=== PATIENT | male | born 1995 | race Caucasian/White ===

== ENCOUNTER 2024-10-17 19:03 | Outpatient (CLI) | payer MEDICAID, SELFPAY | END 2024-10-17 19:04 | disposition home or self-care (01) | PROVIDERS: Visit Provider Emergency Medicine Emergency Medical Services | DX: T50.991A Poisoning by other drugs, medicaments and biological substances, accidental (unintentional), initial encounter (principal); R11.0 Nausea | CPT/HCPCS: A0425; A0427 ==

== ENCOUNTER 2024-10-17 19:29 | Emergency (ER) | payer MEDICAID, SELFPAY ==
[2024-10-17] VITALS (39 sets, daily range): BP systolic 114–137; BP diastolic 33–110; PULSE 61–90; RESP 10–19; TEMP 36.5; O2SAT 90–100; BMI 20.5
[2024-10-17] MEDS: 0.9 % SODIUM CHLORIDE 1000 ml 1,000 ML IV (19:45)
--- NOTE | 2024-10-17 20:04 | CRLHL7_ITS ---
For Patients: As a result of the Cures Act, medical imaging exams and procedure reports are released immediately into your electronic medical record. You may view this report before your referring provider. If you have questions, please contact your health care provider. INDICATION: Ingested foreign body. Patient with given history of ingested bag of fentanyl. TECHNIQUE: Abdominal radiographs, 2 views. COMPARISON: None. FINDINGS: Lower chest: Unremarkable. Bowel: No bowel obstruction. Unremarkable bowel gas pattern. Moderate colonic stool burden, correlate for constipation. Soft tissues: Unremarkable. Bones: No acute osseous abnormalities. IMPRESSION: No radiopaque foreign bodies identified on this examination. No reported foreign body may not be radiodense enough to be visualized on radiograph. Consider CT for further evaluation. Dictated by Ketan Asif MD @ 10/17/2024 8:44:18 PM (Electronically Signed)
--- NOTE | 2024-10-17 20:05 | ED_ITS ---
HPI - Overdose General Chief Complaint: Overdose Stated Complaint: OD Time Seen by Provider: 10/17/24 19:36 History of Present Illness HPI Narrative: This 29-year-old male comes in by ambulance with police present also. He is not under arrest. He admits to taking 2 blue colored pills which he feels were street doses of oxycodone. He also swallowed a plastic bag that had purple- colored powder in it which he states was fentanyl. He arrives here with normal vital signs. He ingested this about an hour prior to arrival here. Related Data Home Medications ?Medication ?Instructions ?Recorded ?Confirmed dextroamphetamine-amphetamine 30 30 mg PO BID 10/17/24 10/17/24 mg tablet (Adderall) Allergies Allergy/AdvReac Type Severity Reaction Status Date / Time trazodone Allergy Intermediate Verified 10/17/24 19:40 Review of Systems Status of ROS: Reports: 10 or more systems reviewed and unremarkable except as noted in History and below Narrative: Constitutional: No fevers, no weight gain or loss. Eyes: No discharge. No vision changes. HENT: No congestion, no sore throat, no ear pain. Cardiovascular: No chest pain, no palpitations. Respiratory: No shortness of breath, no wheezes, no cough. Gastrointestinal: No abdominal pain, no vomiting, no diarrhea. Genitourinary: No dysuria, no hematuria. Musculoskeletal: Normal range of motion. Skin: No rashes, no pruritis. Neurological: No dizziness, weakness, sensory change, speech change. Endo/Heme/Allergies: No bruising or bleeding. No polydipsia. Pysch: no suicidality, no anxiety, no insomnia. All other systems reviewed and are negative. [facility] Social History Smoking Status: Current some day smoker What tobacco products do you use: cigarettes Do you use any of these nicotine containing products: Vaping Products How often do you have a drink containing alcohol: never AUDIT-C Alcohol total score: 0 Non-prescribed substance use: marijuana (any form), crack/cocaine, amphetamines/methamphetamines, opiods/painkillers and club/industrial retrofit designer drugs Exam Narrative: Exam Narrative: Constitutional: Well-developed, well-nourished, no acute distress. HEENT: Normocephalic, atraumatic. Neck: Normal range of motion. Nontender. Supple. Heart: Regular. No murmurs. Normal rate. Intact distal pulses. Lungs: Clear to auscultation. No chest discomfort. No wheezes, rhonchi, or rales. Abdomen: Normal bowel sounds. Nontender. No rebound tenderness. Genitalia: Deferred. Back: No midline tenderness. Normal range of motion. Extremities: Normal range of motion. No injury. Skin: Intact. No rash. Warm. No erythema or pallor. Neurologic: No altered sensation. No weakness. Alert and oriented. Nursing notes and vitals signs are reviewed. Const: Vital Signs, click to edit/add: Vital Signs - 24 hr 10/17/24 19:34 10/17/24 19:47 10/17/24 20:00 Temperature 97.7 F Pulse Rate 81 Pulse Rate [Left P ulse Oximeter] 90 Respiratory Rate 16 15 Blood Pressure Blood Pressure [Le ft Upper Arm] 133/33 L Pulse Oximetry 99 99 Oxygen Delivery Me thod Room Air 10/17/24 20:04 10/17/24 20:15 10/17/24 20:19 Temperature Pulse Rate 82 74 69 Pulse Rate [Left P ulse Oximeter] Respiratory Rate 11 L 16 Blood Pressure 132/92 H 131/80 Blood Pressure [Le ft Upper Arm] Pulse Oximetry 99 90 99 Oxygen Delivery Me thod 10/17/24 20:30 10/17/24 20:32 10/17/24 20:45 Temperature Pulse Rate 76 65 87 Pulse Rate [Left P ulse Oximeter] Respiratory Rate 19 16 Blood Pressure 137/94 H Blood Pressure [Le ft Upper Arm] Pulse Oximetry 98 92 96 Oxygen Delivery Me thod 10/17/24 20:47 10/17/24 20:48 10/17/24 21:00 Temperature Pulse Rate 65 77 90 Pulse Rate [Left P ulse Oximeter] Respiratory Rate 18 Blood Pressure 114/93 H Blood Pressure [Le ft Upper Arm] Pulse Oximetry 98 90 Oxygen Delivery Me thod 10/17/24 21:01 10/17/24 21:02 10/17/24 21:15 Temperature Pulse Rate 76 87 87 Pulse Rate [Left P ulse Oximeter] Respiratory Rate 12 13 Blood Pressure 130/95 H Blood Pressure [Le ft Upper Arm] Pulse Oximetry 100 97 100 Oxygen Delivery Me thod 10/17/24 21:17 10/17/24 21:18 10/17/24 21:30 Temperature Pulse Rate 70 81 85 Pulse Rate [Left P ulse Oximeter] Respiratory Rate Blood Pressure 136/106 H Blood Pressure [Le ft Upper Arm] Pulse Oximetry 97 100 100 Oxygen Delivery Me thod 10/17/24 21:32 10/17/24 21:33 10/17/24 21:50 Temperature Pulse Rate 73 79 65 Pulse Rate [Left P ulse Oximeter] Respiratory Rate 12 16 Blood Pressure 131/110 H Blood Pressure [Le ft Upper Arm] Pulse Oximetry 100 97 100 Oxygen Delivery Me thod 10/17/24 22:01 10/17/24 22:15 10/17/24 22:17 Temperature Pulse Rate 63 81 82 Pulse Rate [Left P ulse Oximeter] Respiratory Rate 11 L Blood Pressure 136/91 H 129/96 H Blood Pressure [Le ft Upper Arm] Pulse Oximetry 100 99 100 Oxygen Delivery Me thod Course Vital Signs Vital signs: Initial Vital Signs Temperature 97.7 F 10/17/24 19:34 Temperature Source Temporal Artery Scan 10/17/24 19:34 Pulse Rate 90 10/17/24 19:34 Pulse Rhythm Regular 10/17/24 19:34 Respiratory Rate 16 10/17/24 19:34 Blood Pressure 133/33 L 10/17/24 19:34 Blood Pressure Mean 66 L 10/17/24 19:34 Blood Pressure Position Supine 10/17/24 19:34 Pulse Oximetry 99 10/17/24 19:34 Oxygen Delivery Method Room Air 10/17/24 19:34 Vital Signs Temperature 97.7 F 10/17/24 19:34 Pulse Rate 90 10/17/24 19:34 Respiratory Rate 16 10/17/24 19:34 Blood Pressure 133/33 L 10/17/24 19:34 Pulse Oximetry 99 10/17/24 19:34 Oxygen Delivery Method Room Air 10/17/24 19:34 Temperature 97.7 F 10/17/24 19:34 Pulse Rate 82 10/17/24 22:17 Respiratory Rate 11 L 10/17/24 22:01 Blood Pressure 129/96 H 10/17/24 22:17 Pulse Oximetry 100 10/17/24 22:17 Oxygen Delivery Method Room Air 10/17/24 19:34 Medications Administered Medications: Generic Name Dose Route Start Last Admin Trade Name Freq PRN Reason Stop Dose Admin Sodium Chloride 1,000 mls @ 1,000 mls/hr 10/17/24 22:45 10/17/24 19:45 0.9 % Sodium Chloride 1000 Ml IV 10/17/24 23:44 1,000 mls/hr .Q1H ALBERT Administration MDM - Overdose MDM Narrative Medical decision making narrative: This patient is brought in by ambulance and police. The patient states that he swallowed a couple blue pills that he thought were street based oxycodone. He also states that he swallowed a bag of fentanyl. An IV was established and the patient did receive a L of normal saline. He apparently ingested these things about an hour prior to arrival. The patient does have a warrant for his arrest but is not under rest as the police that brought him in were from a different county where the warrant is listed. I did speak with an ER physician at [facility] who indicated that many times patient's will state that they swallowed a bag of drugs in order to avoid arrest. After a while the patient started to tell the nurse that he did not actually swallow anything. I had further conversation wi th him and he again states that he did not swallow any bag of fentanyl. I asked him if he did this to avoid arrest by the police and he said yes that was the reason. A did contact poison Control who recommends watching him for 6-8 hours. The patient did want to leave because he was hungry but I stated that we need to do our job here in the event that he did in fact swallow something that could be trouble for him. Imaging Data Abdominal x-ray: Radiologist's impression: No radiopaque foreign bodies identified on this examination. No reported foreign body may not be radiodense enough to be visualized on radiograph. Consider CT for further evaluation. ECG Data Attestation: I personally reviewed and interpreted this ECG as follows: Interpretation: Normal sinus rhythm. Rate is 88 beats per minute. There are no ST or T-wave abnormalities. Discharge Plan Discharge Clinical Impression: Drug overdose Patient Disposition: Home w/ Parent or Adult Condition: Stable Prescriptions: No Action dextroamphetamine-amphetamine [Adderall] 30 mg tablet 30 mg PO BID Rx Instructions: administer doses at least 4-6 hours apart Follow Up/Referrals: Provider,Not a Local [Primary Care Provider] - Stand Alone Forms: [employer] Info Instructions
--- NOTE | 2024-10-17 20:38 | ED.NURSE ---
Poison control contacted. Recommendation 6-8 hour watch. If Narcan given, clock starts over. Symptom management as needed.
--- OUTSIDE RECORDS SUMMARY | 2024-10-17 21:25 | XMS_ITS | Clinical Summary ---
Author Organization [facility] Address [address] [place] [address] Care Team Providers Care Design Technology Professor Name Role Phone Pcp, No Unavailable Unavailable None Primary Care Provider Unavailabl e Allergies Active Allergy Reactions Criticality Noted Date Comments Trazodone Other - Describe In Comment Field 08/31/2016 Nose clogged Medications No known medications Active Problems Problem Noted Date Diagnosed Date Altered mental status 03/03/2020 Purposeful non-suicidal drug ingestion 9 Overdose 10/11/2016 Overview (10/11/2016): Methamphetamine ingestion Methamphetamine abuse 10/11/2016 Mood disorder 05/02/2013 Cannabis dependence 04/27/2012 Overview (01/26/2019): Overview: Problem list name updated by automated process. Provider to review Smoker 12/20/2011 Overview (01/26/2019): Overview: 1 pack per day Drug abuse and dependence 12/20/2011 Overview (01/26/2019): Overview: Prescription pain pills, meth, marijuana, heroin. Drug abuse 04/06/2010 Immunizations Immunization Administration Dates Next Due DTP 12/10/1998,08/08/1996,01/16/1996 ,1995 DTaP 04/04/2003, 9,08/08/1996,03/04/1996 ,01/16/1996,1995 HIB PRP-T (ActHIB,Hiberix) 05/02/2003,04/04/2003 Hepatitis A (Adult) 03/03/2009 Hepatitis A (Peds) 03/03/2009 Hepatitis B (Peds) 10/20/2004, 5,02/26/2004,05/02/2003 ,04/14/2003 Hepatitis B, Unspecified 02/26/2004 Hib Conjugate, Unspecified 05/02/2003,04/04/2003 Inactivated Polio Vaccine 02/20/1999,03/1999,03/24/1996,01/16/1996 ,1995 Influenza Virus, Unspecified 04/28/2020 MMR 11/24/2001,05/30/1997 Meningococcal Vaccine (Menactra) 05/23/2008 Oral Polio Vaccine 03/24/1999 Polio Virus, Unspecified 03/24/1999,02/02,12/10/1998,03/24/1996 ,01/16/1996,1995 Tdap 05/23/2008 Tuberculin (PPD) 05/03/2012 Varicella Vaccine 03/03/2009,02/26/2004 Family History Medical History Relation Name Comments Alcoholism Father No Known Problems Sister Relation Name Status Comments Father Alive Mother Alive Sister Alive Social History Tobacco Use Types Packs/Day Years Used Date Smoking Tobacco: Every Day Cigarettes Smokeless Tobacco: Never Tobacco Cessation:Counseling Given: Yes Alcohol Use Standard Drinks/Week Comments Yes 0 (1 standard drink = 0.6 oz pur e alcohol) rare PHQ-2 Answer Date Recorded PHQ-2 TOTAL SCORE 1 07/31/2020 Social Connections Answer Date Recorded Frequency of Communication with Friends and Fami ly Not on file 07/02/2021 Financial Resource Strain Answer Date R ecorded Difficulty of Paying Living Expenses Not on file 07/02/2021 Difficulty of Paying Living Expenses Not on file 07/02/2021 Interpersonal Safety Answer Date Record ed Are you being hit, kicked, p ushed or yelled at (see row info)? No 02/07/2024 Interpersonal Safety Abuse 12 - 18 Not on file 02/07/2024 Interpersonal Safety Ambulatory Vulnerability No t on file 02/07/2024 Sex and Gender Information Value Date Recorded Sex Assigned at Not on file Legal Sex Male 7:21 AM COMMUNICATION CENTER COORDINATOR Gender Identity Not on file Sexual Orientation Not on file Obstetrics History Last Filed Vital Signs Vital Sign Reading Time Taken Comments Blood Pressure 137/104 02/07/2024 12:07 PM CDT Pulse 98 02/07/2024 12:07 PM CDT Temperature 36.5 C (97.7 F) 02/07/2024 12:07 PM CDT Respiratory Rate 16 02/07/2024 12:07 PM CDT Oxygen Saturation 97% 02/07/2024 12:07 PM CDT Inhaled Oxygen Concentration - - Weight 72.6 kg (160 lb) 02/07/2024 12:05 PM CDT Height 188 cm (6' 2) 02/07/2024 12:05 PM CDT Body Mass Index 20.54 02/07/2024 12:05 PM CDT Plan of Treatment Health Maintenance Due Date Last Done Comments Tetanus booster 05/23/2018 05/23/2008 BMI (ht and wt on same day) for age 18+ 07/31/2021 07/31/2020, 04/05/2016 Depression screening for age 12+ 07/31/2021 07/31/2020 COVID-19 vaccine series ( season) 2024 11/26/2020 Influenza Vaccine (Season Ended) 2025 04/28/2020 Tdap Completed 05/23/2008 HIV for age 15-65 Completed 10/27/2018 Hepatitis C screening for age 18-79 Completed 07/31/2020, 07/31/2020, 10/27/2018, Additional history exists Pneumococcal series for age 6-49 Aged Out No longer eligible based on patient's age to complete this topic Procedures Procedure Name Priority Date/Time Associated Diagnosis Comments ANTI HCV Routine 07/31/2020 9:30 AM COMMUNICATION CENTER COORDINATOR Chronic hepatitis C with hepatic coma (HC) ANTI HIV 1/2 Early AM 10/27/2018 6:54 AM CDT from Last 3 Months or Most Recently Relevant to Health Maintenance Results * (ABNORMAL) ANTI HCV (07/31/2020 9:30 AM COMMUNICATION CENTER COORDINATOR) HEPATITIS C ANTIBODY Reactive, Preliminary Positive(A) Non-React hakan 08/01/2020 7:10 AM COMMUNICATION CENTER COORDINATOR [facility] Comment:Presumptive evidence of antibodies to HCV. Reflexed to HCV RNA Quant (See separate report). Blood BLOOD SPECIMEN / Unknown Butterfly / Unknown 07/31/2020 9:30 AM COMMUNICATION CENTER COORDINATOR 07/31/2020 9:30 AM COMMUNICATION CENTER COORDINATOR us Nolan Betancur SEND OUTS Final Result [facility] [address] [place] [address], * ANTI HIV 1/2 (10/27/2018 6:54 AM CDT) HIV-1/HIV-2 ANTIBODY Non-Reacti ve Non-Reacti ve 10/27/2018 12:30 PM CDT [facility] Comment:HIV-1 p24 and HIV-1/ HIV-2 Ab not detected. Blood BLOOD SPECIMEN / Unknown Butterfly / Unknown 10/27/2018 6:54 AM CDT 10/27/2018 6:57 AM CDT Aftab Nieves MD SEND OUTS Final Res ult Performing Organization Address City/[facility]/ZIP Co de Phone Number [facility] [address] [place] [address], from Last 3 Months or Most Recently Relevant to Health Maintenance Advance Directives * Full Code (Latest Code Status on File) Date Activated Date Inactivated Comments 03/03/2020 3:35 AM 03/04/2020 11:19 AM Question Answer Comments Code Status Discussion: Not Discussed * Full Code Date Activated Date Inactivated Comments 01/27/2019 12:11 AM 01/27/2019 5:18 PM * Full Code Date Activated Date Inactivated Comments 10/27/2018 2:31 AM 10/28/2018 12:48 PM Question Answer Comments Code Status Discussion: Not Discussed * Full Code Date Activated Date Inactivated Comments 10/11/2016 7:30 AM 10/12/2016 1:46 PM Care Teams Design Technology Professor Relationship Specialty Start Date End Date None . PCP - General 09/20/23 Pcp, No . 06/23/22
--- OUTSIDE RECORDS SUMMARY | 2024-10-17 21:25 | XMS_ITS | Clinical Summary ---
Author Organization [facility] Address [address] [place] [id number] Care Team Providers Care Director Of Consulting Services Name Role Phone Britany Holm M.D. Primary Care Provider Source Comments Patient records contain information from all sites at [facility]. For routine questions regarding patient records, call [phone] during business hours, M-F 8:00 AM - 5:00 PM Central Time. Record requests for emergency care only can be directed to [phone] at any time.[facility] Allergies No known active allergies Medications Suboxone 8-2 mg per SL film PLACE 1 STRIP UNDER THE TONGUE TWICE DAILY DIRECTED FOR 15 DAYS 3 Active mirtazapine (REMERON) 15 mg tablet Take 15 mg by mouth at bedtime. Active naloxone (NARCAN) 4 mg/actuation nasal spray Administer 4 mg into nostril(s). 1 Active NIFEdipine XL (PROCARDIA XL) 30 mg 24 hr tabletIndicatio ns:Hypertension Essential Primary Take 1 tablet (30 mg total) by mouth at bedtime. 90 tablet 3 Active blood pressure monitor (Blood Pressure Kit) kitIndications: Hypertension Essential Primary 1 kit daily. 1 kit 3 Active Active Problems Problem Noted Date Diagnosed Date Attention Deficit Hyperactive Disorder 3 Malingering 11/24/2019 11/08/2022 Overview (11/08/2022): Repeated presentations to ED after telling police he swallowed bags of meth or heroin to avoid arrest, then leaves AMA. Hepatitis C Chronic 11/24/2019 11/08/2022 Cannabis Mild Use Disorder (Abuse) Uncomplicated 11/24/2019 11/08/2022 Opioid Mild Use Disorder (Abuse) Uncomplicated 0 11/24/2019 11/08/2022 Other Psychoactive Substance Use Unspecified Unc omplicated 11/24/2019 11/08/2022 Other Stimulant Abuse Uncomplicated 10/11/2016 11/08/2022 Other Psychoactive Substance Moderate Or Severe Use Disorder (Dependence) Uncomplicated 08/12/2016 11/08/2022 Pain Shoulder Right 09/19/2015 11/08/2022 Mood Disorder 05/02/2013 11/08/2022 Other Psychoactive Substance Mild Use Disorder (Abuse) Uncomplicated 05/02/2013 11/08/2022 Cannabis Moderate Or Severe Use Disorder (Dependence) Uncomplicated 04/27/2012 11/08/2022 Overview (11/08/2022): Problem list name updated by automated process. Provider to review Overview: Problem list name updated by automated process. Provider to review Immunizations Immunization Administration Dates Next Due DTP 12/10/1998, 7,01/16/1996,1995 DTaP (Infanrix, Tripedia) 04/04/2003,03/1999,08/08/1996,1995,01/16/1996,1995 HepA Adult 04/28/2020,03/03/2009 HepA Pediatric/Adolescent 03/03/2009 HepB Pediatric/Adolescent 10/20/2004,,02/26/2004,2002,04/14/2003 HepB, Unspecified 02/26/2004 Hib, Unspecified 05/02/2003,04/04/2003 IPV 02/20/1999, 9,03/24/1996,1995,1995 Influenza, Unspecified 04/28/2020 MCV4 (Menactra)(Discontinued) 05/23/2008 MMR 11/24/2001,05/30/1997 OPV 03/24/1999 PPSV23 04/28/2020 Polio, Unspecified 03/24/1999, 9,12/10/1998,1995,01/16/1996,1995 SARS-COV-2 (COVID-19) - MODE RNA BIVALENT(Discontinued) 05/12/2022 SARS-COV-2 (COVID-19) - MODERNA(Discontinued) 07/16/2021,12/31/2020 SARS-COV-2 (COVID-19) - PFIZ ER (Discontinued)(12 years or older) 11/26/2020 Tdap 05/23/2008 Tuberculin Skin Test, Unspecified 05/03/2012 PARISH 03/03/2009,02/26/2004 Family History Medical History Relation Name Comments Alcoholic Maternal Grandfather Cancer Paternal Grandfather Cancer Paternal Grandmother Relation Name Status Comments Maternal Grandfather Paternal Grandfather Paternal Grandmother Social History Tobacco Use Types Packs/Day Years Used Date Smoking Tobacco: Every Day Cigarettes 1 12.9 Started: 12/2011 Passive Smoke Exposure: Current Smokeless Tobacco: Never Nutrition Answer Date Recorded Nutrition: EVOO Fat Source Unknown 08/30 Nutrition: Servings of Fruits/Vegetables per Day Not on file 2020 Dental Answer Date Recorded Dental: Regular Dentist Unknown 08/30/19 21 Sex and Gender Information Value Date Recorded Sex Assigned at Not on file 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 Gender Identity Not on file Sexual Orientation Not on file Last Filed Vital Signs Vital Sign Reading Time Taken Comments Blood Pressure 148/111 11/08/2022 10:47 AM CDT Pulse 94 11/08/2022 10:47 AM CDT Temperature 36.5 C (97.7 F) 11/08/2022 10:16 AM CDT Respiratory Rate - - Oxygen Saturation - - Inhaled Oxygen Concentration - - Weight 80.6 kg (177 lb 11.1 oz) 023 10:16 AM CDT Height 195.6 cm (6' 5.01) 11/08/2022 1 0:16 AM CDT Body Mass Index 21.07 11/08/2022 10:16 AM CDT Plan of Treatment Health Maintenance Due Date Last Done Comments HIV Screening 1995 Tobacco Cessation counseling 1995 DTaP,Tdap,and Td Vaccines (7 - Td or Tdap) 05/23/2018 05/23/2008, 04/04/2003, 12/10/1998, Additional history exists Pneumococcal vaccine (0-49 years) (2 of 2 - PCV) 04/28/2021 04/28/2020 COVID-19 Vaccine (5 - season) 2024 05/12/2022, 07/16/2021, 12/31/2020, Additional history exists Influenza Vaccine (#1) 2024 04/28/2020 Depression Screening (Annual PHQ-2) 07/04/2024 IPV Vaccines Completed 03/24/1999, 03/05, 02/20/1999, Additional history exists Hepatitis B Vaccines Completed 10/20/2004, 09/14/2004, 02/26/2004, Additional history exists Varicella Vaccines Completed 03/03/2009, 02/26/2004 Hepatitis A Vaccines Completed 04/28/2020, 03/03/2009, 03/03/2009 HPV Vaccines Aged Out No longer eligi ble based on patient's age to complete this topic Insurance [facility] Care Teams Director Of Consulting Services Relationship Specialty Start Date End Date Britany Holm M.D. [address] [place] [phone] PCP - General Family Medicine 10/19/22
--- OUTSIDE RECORDS SUMMARY | 2024-10-17 21:26 | XMS_ITS | Encounter Summary ---
Author Organization [facility] Address [address] [place] [address] Care Team Providers Care Lang Path Therapist Name Role Phone Needs Pcp, Assignment Primary Care Provider Encounter Details Date Type Department Care Team (Late st Contact Info) Description 04/13/2019 Lab Requisition [facility] [address] 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
--- OUTSIDE RECORDS SUMMARY | 2024-10-17 21:26 | XMS_ITS | Encounter Summary ---
Author Organization [employer] Address [address] [place] [address] Care Team Providers Care Truss Puller Helper Name Role Phone Needs Pcp, Assignment Primary Care Provider [phone] Encounter Details Date Type Department Care Team (Latest Contact Info) Description 03/12/2020 Lab Requisition [facility] [address] 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 Not on file Not on file documented as of this encounter Plan of Treatment Not on file documented as of this encounter Procedures Procedure Name Priority Date/Time Associated Diagnosis Comments HEPATITIS C RNA QUANTITATIVE BY TMA Routine 03/12/2020 1:40 PM CDT Encounter for screening for infections with a predominantly sexual mode of transmission HEPATITIS PANEL ACUTE WITH REFLEX TO CONFIRMATION Routine 03/12/2020 1:40 PM CDT Encounter for screening for infections with a predominantly sexual mode of transmission TREPONEMA SCREEN Routine 03/12/2020 1:40 PM CDT Encounter for screening for infections with a predominantly sexual mode of transmission HIV 1/2 AG/AB 4TH GEN Routine 03/12/2020 1:40 PM CDT Encounter for screening for infections with a predominantly sexual mode of transmission documented in this encounter Results * (ABNORMAL) Hepatitis C RNA Quant by TMA (03/12/2020 1:40 PM CDT) [facility] HCV RNA, QN, REAL-TIME PCR 537029(H ) NOT DETECTED IU/mL 03/17/2020 11:00 PM CDT [facility] Mona THOMAS HCV RNA, QN, REAL-TIME PCR 5.24(H) NOT DETECTED Log IU/mL 03/17/2020 11:00 PM CDT [facility] THOMAS Comment: This test was performed using Real-Time Polymerase Chain Reaction. Reportable Range: 15 IU/mL to 100,000,000 IU/mL (1.18 Log IU/mL to 8.00 Log IU/mL). The analytical performance characteristics of this assay have been determined by [employer]. The modifications have not been cleared or approved by the FDA. This assay has been validated pursuant to the CLIA regulations and is used for clinical purposes. For more information on this test, go to: http://education.[employer]/faq/ABE84e7 (This link is being provided for informational/ educational purposes only.) [place], [facility], [address] [place] [address], [phone], RAVEN WIN MD Blood Venipuncture / Unknown 03/12/2020 1:40 PM CDT 03/14/2020 7:53 AM CDT us Serafin Varela LAB_1 Final Result [facility] THOMAS [address] [place] [address] * Treponema Screen (03/12/2020 1:40 PM CDT) [facility] Treponema Screen Result 0.066 {s_co_ratio } 03/12/2020 5:25 PM CDT [facility] Treponema Screen Interpretation Non Reactive Non Reactive 03/12/2020 5:25 PM CDT [facility] Blood Non-blood Collection / Unknown 03/12/2020 1:40 PM CDT 03/12/2020 4:18 PM CDT Serafin Varela LAB_1 Final Result [facility] [address] [place] [address] * HIV 1/2 Ag/Ab 4th Generation (03/12/2020 1:40 PM CDT) [facility] HIV 1/2 Antigen/Antib raúl (4th generation) Negative (Non Reactive) Negative (Non Reactive) 03/12/2020 5:25 PM CDT [facility] Comment:HIV-1 p24 Antigen an d HIV-1/HIV-2 Antibody not detected Blood Non-blood Collection / Unknown 03/12/2020 1:40 PM CDT 03/12/2020 4:22 PM CDT Serafin Varela LAB_1 Final Result [facility] [address] [place] [address] * (ABNORMAL) Acute Hepatitis Panel (with Reflex) (03/12/2020 1:40 PM CDT) [facility] Hepatitis A Antibody, IgM Negative (Non Reactive) Negative (Non Reactive) 03/12/2020 7:47 PM CDT [facility] Comment:IgM anti-HAV not det ected. Does not exclude the possibility of exposure to or infection with HAV. Levels of IgM anti-HAV may be below the cut-off in early infection. Hepatitis Bc Antibody,IgM Negative (Non Reactive) Negative (Non-Reacti ve) 03/12/2020 7:47 PM CDT [facility] Comment:IgM anti-HBc not det ected. Does not exclude the possibility of exposure to or infection with HBV. Hepatitis B Surface Antigen Negative (Non Reactive) Negative (Non Reactive) 03/12/2020 7:47 PM CDT [facility] Hepatitis C Antibody Positive (Reactive)( A) Negative (Non Reactive) 03/12/2020 7:47 PM CDT [facility] Comment:Presumptive evidence of antibodies to HCV. Per the CDC's recommended guidelines, HCV Quantitative RNA testing has been ordered. Blood Non-blood Collection / Unknown 03/12/2020 1:40 PM CDT 03/12/2020 4:19 PM CDT Serafin Varela LAB_1 Final Result [facility] [address] [place] [address], [facility] documented in this encounter Visit Diagnoses Diagnosis Encounter for screening for infections with a predominantly sexual mode of transmission documented in this encounter Care Teams Truss Puller Helper Relationship Specialty Start Date End Date Needs [facility] [address] PCP - General 01/20/16 documented as of this encounter
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
--- OUTSIDE RECORDS SUMMARY | 2024-10-17 21:26 | XMS_ITS | Encounter Summary ---
Author Organization [facility] Address [address] [place] [address] Care Team Providers Care Trust Clerk Name Role Phone Needs Pcp, Assignment Primary Care Provider Encounter Details Date Type Department Care Team (Latest Contact Info) Description 03/12/2020 Lab Requisition [facility] [address] 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 on file Not on file documented as of this encounter Plan of Treatment Not on file documented as of this encounter Procedures Procedure Name Priority Date/Time Associated Diagnosis Comments URINE CULTURE Routine 03/12/2020 7:45 AM CDT Encounter for screening for infections with a predominantly sexual mode of transmission TRICHOMONAS VAGINALIS, MOLECULAR DETECTION, URINE/URETHRA Routine 03/12/2020 7:45 AM CDT Encounter for screening for infections with a predominantly sexual mode of transmission CHLAMYDIA/NEISSERIA GONORRHOEAE RNA, TMA, UROGENITAL Routine 03/12/2020 7:45 AM CDT Encounter for screening for infections with a predominantly sexual mode of transmission CHLAMYDIA & GC, URINE (14 YEARS AND OLDER) Routine 03/12/2020 7:45 AM CDT Encounter for screening for infections with a predominantly sexual mode of transmission documented in this encounter Results * Chlamydia/Neisseria gonorrhoeae RNA, TMA, Urogenital (03/12/2020 7:45 AM CDT) Chlamydia Trachomatis RNA, TMA, Urogenital NOT DETECTED NOT DETECTED 03/14/2020 3:00 PM CDT [email or web address] [facility] THOMAS Neisseria gonorrhoeae RNA, TMA, Urogenital NOT DETECTED NOT DETECTED 03/14/2020 3:00 PM CDT [facility] Mona THOMAS [facility] See Note SEE NOTE 03/14/2020 3:00 PM CDT [facility] Mon[facility] THOMAS Comment: The analytical performance characteristics of this assay, when used to test SurePath(TM) specimens have been determined by [employer]. The modifications have not been cleared or approved by the FDA. This assay has been validated pursuant to the CLIA regulations and is used for clinical purposes. For additional information, please refer to https://education.[employer]/faq/XZU770 (This link is being provided for information/ educational purposes only.) [place], [facility], [address] [place] [address], [phone], RAVEN WIN MD Urine STD Non-blood Collection / Unknown 03/12/2020 7:45 AM CDT 03/12/2020 4:14 PM CDT Serafin Varela MD LAB_1 Final Result [facility] Mon[facility] THOMAS [address] [place] [address] * Urine Culture (03/12/2020 7:45 AM CDT) Urine Culture Urogenital Dona 03/13/2020 6:50 PM CDT [facility] Urine URINE SPECIMEN COLLECTION, CLEAN CATCH / Unknown Non-blood Collection / Unknown 03/12/2020 7:45 AM CDT 03/12/2020 4:13 PM CDT Serafin Varela MD LAB_1 Final Result [address] [phone] * Trichomonas vaginalis by Qual TMA (03/12/2020 7:45 AM CDT) T. vaginalis by TMA Negative Negative 03/15/2020 1:49 AM CDT [facility] Comment: Test developed and characteristics determined by [facility]. See Compliance Statement B: [address] Interpretive Information: Trichomonas vaginalis by TMA A negative result does not completely rule out infection with T. vaginalis. Results should be interpreted in conjunction with other clinical data. This test has not been validated for use with self-collected vaginal swab specimens from patients. Performance of this test on vaginal swab specimens from women has not been evaluated. This test is intended for medical purposes only and is not valid for the evaluation of suspected sexual abuse or for other forensic purposes. Performed By: [facility] [address] [place] [address] Manager Relationship: Jo-Ann Sol MD [employer] Type Urine 020 1:49 AM CDT [facility] Specimen Source Urine 0 1:49 AM CDT [facility] Urine Non-blood Collection / Unknown 03/12/2020 7:45 AM CDT 03/12/2020 4:14 PM CDT Serafin Varela MD LAB_1 Final Result [facility] [address] [phone] [place] [phone] * Chlamydia & GC, Urine (14 Years and Older) (03/12/2020 7:45 AM CDT) Chlamydia Trachomatis and N. gonorrhoeae (Sendout) Due to current laboratory situations this test is temporarily being sent out. See the new test in chart review. 03/13/2020 2:39 PM CDT [facility] Urine STD Non-blood Collection / Unknown 03/12/2020 7:45 AM CDT 03/12/2020 4:14 PM CDT us Serafin Varela MD LAB_1 Final Result [facility] [address] [id number] [phone] documented in this encounter Visit Diagnoses Diagnosis Encounter for screening for infections with a predominantly sexual mode of transmission documented in this encounter Care Teams Trust Clerk Relationship Specialty Start Date End Date Needs Pcp, [place] [address] PCP - General 01/20/16 documented as of this encounter
--- OUTSIDE RECORDS SUMMARY | 2024-10-17 21:26 | XMS_ITS | Encounter Summary ---
Author Organization [facility] er Address [address] [place] [address] Care Team Providers Care Industrial Spraypainter Name Role Phone None, Pcp Primary Care Provider Unavailabl e Reason for Visit * Reason Onset Date Comments Critical Lab Results 03/20/2024 Encounter Details Date Type Department Care Team (Late st Contact Info) Description 03/20/2024 Telephone [facility] [address] [place] [address] Ethan Barreto MD [address] [place] [address] Critical Lab Results Social History Tobacco Use Types Packs/Day Years Used Date Smoking Tobacco: Every Day Cigarettes Smokeless Tobacco: Former PHQ-2 Answer Date Recorded PHQ-9 Total Score 7 03/19/2024 Sex and Gender Information Value Date Recorded Sex Assigned at Not on file 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
--- OUTSIDE RECORDS SUMMARY | 2024-10-17 21:26 | XMS_ITS | Encounter Summary ---
Author Organization [facility] Address [address] [place] [address] Care Team Providers Care Immunochemist Name Role Phone Needs Pcp, Assignment Primary Care Provider Encounter Details Date Type Department Care Team (Latest Contact Info) Description 03/07/2019 Lab Requisition [facility] [address] 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 vaginalis by TMA Negative Negative 03/10/2019 6:15 AM CDT [facility] Comment: Test developed and characteristics determined by [employer]. See Compliance Statement B: [employer]/CS Interpretive Information: Trichomonas vaginalis by TMA A [...] abuse or for other forensic purposes. Performed by [employer] [facility], [address] [place] [address] [email or web address], Prashant Monroy MD, Lab. Director [employer] Type Urine 019 6:15 AM CDT [facility] Specimen Source Urine 9 6:15 AM CDT [facility] Urine Non-blood Collection / Unknown 03/06/2019 8:30 PM CDT 03/07/2019 8:20 PM CDT Serafin Varela LAB_1 Final Result [facility] [address] [place], [place] [address] [place] [address] * Chlamydia & GC, Urine (14 Years and Older) (03/06/2019 8:30 PM CDT) Chlamydia Trachomatis STD Not Detected Not Detected 03/08/2019 3:30 PM CDT [facility] N. gonorrhoeae STD Not Detected Not Detected 03/08/2019 3:30 PM CDT [facility] Urine Non-blood Collection / Unknown 03/06/2019 8:30 PM CDT 03/07/2019 8:19 PM CDT Narrative [facility] - 03/08/2019 3:30 PM CDT Test performed by Molecular Detection Urine Volume submitted was greater than 30 ml. Excess collection volume may decrease test sensitivity. us Serafin Varela LAB_1 Final Result Performing Organization Address City/State/[facility] [[email or web address]] Co de Phone Number [facility] [address] [phone] documented in this encounter Visit Diagnoses Diagnosis Other psychoactive substance abuse, uncomplicated ([facility]) documented in this encounter Care Teams Immunochemist Relationship Specialty Start Date End Date Needs Pcp, [place] [address] PCP - General 01/20/16 documented as of this encounter
--- OUTSIDE RECORDS SUMMARY | 2024-10-17 21:26 | XMS_ITS | Encounter Summary ---
Author Organization [facility] er Address [address] [place] [address] Care Team Providers Care Test Borer Name Role Phone None, Pcp Primary Care Provider Unavailabl e Reason for Visit * Reason Onset Date Comments Med Refill 04/16/2024 Encounter Details Date Type Department Care Team (Late st Contact Info) Description 04/16/2024 Refill [facility] [address] [place] [address] Ethan Barreto MD [address] [place] [address] Attention deficit hyperactivity disorder (ADHD), combined type Social History Tobacco Use Types Packs/Day Years Used Date Smoking Tobacco: Every Day Cigarettes Smokeless Tobacco: Former PHQ-2 Answer Date Recorded PHQ-9 Total Score 10 04/17/2024 Sex and Gender Information Value Date Recorded Sex Assigned at Not on file 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 Patient was transferred to scheduling and has a follow up appt scheduled for tomorrow with Dr. Barreto. Patient was advised Dr. Barreto may want to wait until visit to renew since he no showed last visit. Patient verbalized understanding. Upcoming appointment with provider: 04/17/2024 Last visit in provider department: 03/23/2024 Last visit requested medication was discussed: 03/23/2024 Last Rx: amphetamine-dextroamphetamine (Adderall) 15 MG tablet #21 with 0 refills 03/19/2024 amphetamine-dextroamphetamine XR (ADDERALL XR) 30 MG 24 hr capsule #21 with 0 refills 03/19/2024 Requested Prescriptions Pending Prescriptions Disp Refills amphetamine-dextroamphetamine (Adderall) 15 MG tablet 21 tablet 0 Sig: Take 1 tablet (15 mg total) by mouth 1 (one) time each day for 21 days amphetamine-dextroamphetamine XR (ADDERALL XR) 30 MG 24 hr capsule 21 capsule 0 Sig: Take 1 capsule (30 mg total) by mouth 1 (one) time each day in the morning for 21 days Labs: Vitals: BP Readings from Last 2 Encounters: 03/23/24 (!) 147/101 03/20/24 128/86 Last Controlled Substance Agreement (CSA): 03/20/2024 Last Random Urine Drug Screen (RUDS): 03/20/2024 documented in this encounter Plan of Treatment Not on file documented as of this encounter Visit Diagnoses Diagnosis Attention deficit hyperactivity disorder (ADHD), combined type documented in this encounter Care Teams Test Borer Relationship Specialty Start Date End Date None, Pcp [address] [place] [phone] PCP - General Registered Associate 05/29/18 documented as of this encounter
--- OUTSIDE RECORDS SUMMARY | 2024-10-17 21:26 | XMS_ITS | Encounter Summary ---
Author Organization [employer] Address [address] [place] [address] Care Team Providers Care Reception Specialist Name Role Phone Needs Pcp, Assignment Primary Care Provider Encounter Details Date Type Department Care Team (Late st Contact Info) Description 03/27/2019 Lab Requisition [facility] [address] 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 Not on file Not on file Not on file documented as of this encounter Plan of Treatment Not on file documented as of this encounter Procedures Procedure Name Priority Date/Time Associated Diagnosis Comments CBC AND DIFFERENTIAL PANEL Routine 03/27/2019 6:52 AM CDT Splenomegaly, not elsewhere classified Hydronephrosis RENAL FUNCTION PANEL Routine 03/27/2019 6:52 AM CDT Splenomegaly, not elsewhere classified Hydronephrosis COMPLETE BLOOD COUNT-W/DIFF Routine 03/27/2019 6:52 AM CDT Splenomegaly, not elsewhere classified Hydronephrosis documented in this encounter Results * Complete Blood Count-W/Diff (03/27/2019 6:52 AM CDT) WBC 6.1 3.5 - 10.5 x10(9)/L 03/27/2019 12:39 PM CDT [facility] RBC 4.93 4.32 - 5.72 x10(12)/L 03/27/2019 12:39 PM CDT [facility] Hemoglobin 14.7 13.5 - 17.5 g/dL 03/27/2019 12:39 PM CDT [facility] HCT 44.6 38.8 - 50.0 % 03/27/2019 12:39 PM CDT [facility] MCV 90.5 80.0 - 100.0 fL 03/27/2019 12:39 PM CDT [facility] MCH 29.8 27.6 - 33.3 pg 03/27/2019 12:39 PM CDT [facility] MCHC 33.0 31.5 - 35.2 g/dL 03/27/2019 12:39 PM CDT [facility] RDW 14.5 11.9 - 15.5 % 03/27/2019 12:39 PM CDT [facility] Platelets 271 150 - 450 x10(9)/L 03/27/2019 12:39 PM CDT [facility] Automated NRBC 0 <=0 /100 WBC 03/27/2019 12:39 PM CDT [facility] Neutrophil Absolute 2.7 1.7 - 7.0 10(9)/L 03/27/2019 12:39 PM CDT [facility] Lymphocyte Absolute 2.4 1.0 - 4.8 10(9)/L 03/27/2019 12:39 PM CDT [facility] Monocyte Absolute 0.7 0.2 - 0.9 10(9)/L 03/27/2019 12:39 PM CDT [facility] Eosinophil Absolute 0.2 0.0 - 0.5 10(9)/L 03/27/2019 12:39 PM CDT [facility] Basophil Absolute 0.1 0.0 - 0.3 10(9)/L 03/27/2019 12:39 PM CDT [facility] Immature Granulocyte % 0.2 0.0 - 0.5 % 03/27/2019 12:39 PM CDT [facility] Blood Venipuncture / Unknown 03/27/2019 6:52 AM CDT 03/27/2019 12:22 PM CDT Serafin Varela LAB_1 Final Result [facility] [address] [place] [address], [facility] * Renal Function Panel (03/27/2019 6:52 AM CDT) Sodium 141 136 - 145 mmol/L 03/27/2019 2:52 PM CDT [facility] Potassium 4.3 3.5 - 5.1 mmol/L 03/27/2019 2:52 PM CDT [facility] Chloride 104 98 - 109 mmol/L 03/27/2019 2:52 PM CDT [facility] CO2 26 20 - 29 mmol/L 03/27/2019 2:52 PM CDT [facility] Anion Gap 11 7 - 16 mmol/L 03/27/2019 2:52 PM CDT [facility] Calcium 9.8 8.4 - 10.4 mg/dL 03/27/2019 2:52 PM CDT [facility] BUN 16 7 - 26 mg/dL 03/27/2019 2:52 PM CDT [facility] Creatinine 0.76 0.73 - 1.18 mg/dL 03/27/2019 2:52 PM CDT [facility] GFR, Estimated >60 >60 mL/min/1.7 3m2 03/27/2019 2:52 PM CDT [facility] GFR, Est If >60 >60 mL/min/1.7 3m2 03/27/2019 2:52 PM CDT [facility] Albumin 4.2 3.5 - 5.0 g/dL 03/27/2019 2:52 PM CDT [facility] Phosphorus 4.5 2.3 - 4.7 mg/dL 03/27/2019 2:52 PM CDT [facility] Glucose 88 70 - 100 mg/dL 03/27/2019 2:52 PM CDT [facility] Comment:The given reference range is for the fasting state. Non-fasting reference range for glucose is 70 - 180 mg/dL. Hours Fasting 0 03/27/2019 2:52 PM CDT [facility] Blood Venipuncture / Unknown 03/27/2019 6:52 AM CDT 03/27/2019 12:20 PM CDT us Serafin Pérez Nichole LAB_1 Final Result [facility] [address] documented in this encounter Visit Diagnoses Diagnosis Splenomegaly, not elsewhere classified Hydronephrosis documented in this encounter Care Teams Reception Specialist Relationship Specialty Start Date [place] [address] PCP - General 01/20/16 documented as of this encounter
--- OUTSIDE RECORDS SUMMARY | 2024-10-17 21:26 | XMS_ITS | Encounter Summary ---
Author Organization [facility] Address [address] [facility] [place] [address] Care Team Providers Care Supervisor Plastering Name Role Phone No Ref-Primary, Physician Primary Care Provider System, Provider Not In Primary Care Provider Un available No Ref-Primary, Physician Primary Care Provider System, Provider Not In Unavailable Unavaila ble No Ref-Primary, Physician Unavailable [phone] No Ref-Primary, Physician Unavailable [phone] Taisha Balderrama APRN MONOTYPE KEYBOARD OPERATOR Unavailable [phone] Reason for Visit * Reason Onset Date Comments MH/CD Inpatient 06/21/2019 Encounter Details Date Type Department Care Team ([facility] st Contact Info) Description 06/21/2019 Telephone [facility] Behavioral Health Intake [address] [place] [phone] Generic, Behavioral Intake, MH/CD Inpatient Social History Tobacco Use Types Packs/Day Years Used Date Smoking Tobacco: Every Day Cigarettes Smokeless Tobacco: Never Alcohol Use Standard Drinks/Week Comments Not Currently 0 (1 standard drink = 0.6 oz pur e alcohol) Sex and Gender Information Value Date Recorded Sex Assigned at Not on file Legal Sex Male 5:10 AM NUCLEAR PHYSICIAN Gender Identity Not on file Sexual Orientation Not on file documented as of this encounter Miscellaneous Notes * Telephone Encounter - Chan Casas - 06/21/2019 12:58 PM NUCLEAR PHYSICIAN S - 23/M presenting to [facility] ED requesting Detox from Opiates and Benzodiazepines B - Pt.reports using Heroin IV 2 to 3 grams daily EDWARDO today , uses 6 mg xanax daily , EDWARDO this morning reports hx of W/d seizure most recent 3 months ago, reports meth use as well a couple grams , denies SI HI , recently diagnosed w/ HEP C. U tox pos amphetamines, benzodiazepines, THC and opiates A - Vol R - admit to 3A / CD / Dr. Lucero EAR PHYSICIAN EAR PHYSICIAN documented in this encounter Plan of Treatment Not on file documented as of this encounter Visit Diagnoses Not on filedocumented in this encounter Additional Health Concerns Infection Onset Date Last Indicated Resolved Time Rule Out COVID-04/09/2023 04/09/2023 04/09/2023 5:03 AM CDT Assessment Noted Time PHQ-9 Depression Total Score: 5 08/13/19 17 7:09 AM NUCLEAR PHYSICIAN documented as of this encounter Care Teams Supervisor Plastering Relationship Specialty Start Date End Date No Ref-Primary, Physician PCP - General 04/25/19 01/13/23 System, Provider Not In PCP - General Clinic 01/14/23 08/10/24 No Ref-Primary, Physician PCP - General 08/11/24 System, Provider Not In Clinic 08/11/24 No Ref-Primary, Physician 01/14/23 No Ref-Primary, Physician 04/25/19 Taisha Balderrama APRN MONOTYPE KEYBOARD OPERATOR [facility] [address] [place] [address] Assigned Behavioral Health Provider 01/24/24 documented as of this encounter
--- OUTSIDE RECORDS SUMMARY | 2024-10-17 21:26 | XMS_ITS | Encounter Summary ---
Author Organization [facility] Address [address] [facility] [place] [address] Care Team Providers Care Electrical Accessories Ii Assembler Name Role Phone Pastora Peters MD Primary Care Provider [phone] Confirmed, No Pcp Primary Care Provider Unavaila ble No Ref-Primary, Physician Primary Care Provider No Ref-Primary, Physician Primary Care Provider System, Provider Not In Primary Care Provider Un available No Ref-Primary, Physician Primary Care Provider System, Provider Not In Unavailable Unavaila ble No Ref-Primary, Physician Unavailable [phone] No Ref-Primary, Physician Unavailable [phone] Taisha Balderrama APRN DUPLICATING MACHINE OPERATOR Unavailable [phone] Encounter Details Date Type Department Care Team (Late st Contact Info) Description 03/28/2013 Telephone [facility] Behavioral Health Intake [address] [place] [phone] Generic, Behavioral Intake, Social History Tobacco Use Types Packs/Day Years Used Date Smoking Tobacco: Every Day Cigarettes Smokeless Tobacco: Never Alcohol Use Standard Drinks/Week Comments Yes 0 (1 standard drink = 0.6 oz pur e alcohol) monthly Sex and Gender Information Value Date Recorded Sex Assigned at Not on file Legal Sex Male 5:[address] REGISTRY OFFICER Gender Identity Not on file Sexual Orientation Not on file documented as of this encounter Miscellaneous Notes * Telephone Encounter - AfricaNeelima littlejohne - 03/28/2013 2:48 PM CDT S-Pt is being referred to [facility] after he is stabilized on 6 [facility]. Pt still has IV per RN @3pm. B-Per Dr Chambers's note: pts parents are ambivalent about transfer to unit. We would need themto be on board for the transfer before we could move the pt to . Pt needs a primary [place] mentalhealth diagnosis to go to [facility] on 6A. Pt admits to taking LSD which made him anxious so he took someXanax. He states he uses either marijuana, K2, or LSD almost daily. A-Told RN we would talk in the m orning after parents consider if they want pt to return to [facility]A. Dr Carbajal is aware of the situationand emphasized the need for a primary MENTAL HEALTH diagnosis for the pt to meet criteria on 6a. R-[facility] to check on pts disposition. Mary Ellen Scott documented in this encounter Plan of Treatment Not on file documented as of this encounter Visit Diagnoses Not on filedocumented in this encounter Additional Health Concerns Infection Onset Date Last Indicated Resolved Time Rule Out COVID-19 04/09/2023 04/09/2023 04/09/2023 5:03 AM CDT documented as of this encounter Care Teams Electrical Accessories Ii Assembler Relationship Specialty Start Date End Date Pastora Peters MD PCP - General Family Practice 03/28/13 05/23/16 Confirmed, No Pcp PCP - General 05/24/16 03/03/17 No Ref-Primary, Physician PCP - General 10/13/18 04/24/19 No Ref-Primary, Physician PCP - General 04/25/19 01/13/23 System, Provider Not In PCP - General Clinic 01/14/23 08/10/24 No Ref-Primary, Physician PCP - General 08/11/24 System, Provider Not In Clinic 08/11/24 No Ref-Primary, Physician 01/14/23 No Ref-Primary, Physician 04/25/19 Taisha Balderrama APRN DUPLICATING MACHINE OPERATOR [facility] [address] [place] [id number] Assigned Behavioral Health Provider 01/24/24 documented as of this encounter
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
--- OUTSIDE RECORDS SUMMARY | 2024-10-17 21:26 | XMS_ITS | Encounter Summary ---
Author Organization [facility] er Address [address] [place] [address] Care Team Providers Care Bar And Filler Assembler Name Role Phone None, Pcp Primary Care Provider Unavailabl e Reason for Visit * Reason Onset Date Comments MAT Clinic Referral/Readmission 06/06/2024 Encounter Details Date Type Department Care Team (Late st Contact Info) Description 06/06/2024 Telephone SE MEDICATION ASSISTED TREATMENT [address] [place] [address] [id number] Aftab Reza PA-C [address] [place] [phone] MAT Clinic Referral/Readmission Social History Tobacco Use Types Packs/Day Years Used Date Smoking Tobacco: Every Day Cigarettes Smokeless Tobacco: Former PHQ-2 Answer Date Recorded PHQ-9 Total Score 5 10/04/2024 Sex and Gender Information Value Date Recorded Sex Assigned at Not on file 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 He noted that he stopped Zubsolv 5 days ago because he wanted to use and he relapsed on fentanylabout 3-4 days ago. 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 Patient does not haveany Zubsolv in his possession at this time but he does have clonidine, hydroxyzine, and zofran thathe can use as needed for withdrawal symptoms. Patient was added to the schedule for an 11 am readmission visit tomorrow, 10/16/24, with Dr. Garcia. * Telephone Encounter - Zakiya Lopez MD - 09/25/2024 12:27 PM CDT Noted. Did not show today. Zakiya Seals MD * Telephone Encounter - Martha Cevallos RN - 09/25/2024 7:56 AM CDT Patient contacted the MAT Clinic requesting to present early to his scheduled appointment today which is at 11:20am. Patient notes that he needs to be in [place] to catch his taxi at 1:30pm [facility]. This RN explained that he could present by 10:45am but it was not a guarantee that he would be seen sooner. This RN elaborated and stated that it was unlikely he would still be in the clinic past 12-12:30pm but it would be our priority to ensure he left in time. Patient verbalized great appreciation and the phone call was ended. Patient did note having a dose of Zubsolv this morning and reported having an additional tablet in his pants pocket to take as well. * Telephone Encounter - Kai Valenzuela BSN, RN - 09/24/2024 11:35 AM CDT Patient contacted the MAT Clinic requesting to reschedule a Transfer of Care appointment to continue Zubsolv prescribing and discuss transitioning to the Sublocade injection. Patient is currently prescribed Zubsolv from the [facility]. He believes he is out of medication at this time,although he has not double checked his prescription bottle. He states that he takes Zubsolv 11 mg tablet twice daily. He is living with his parents in [place], [place] and wants to switch to our clinic because it is closer than driving [facility]. Notably, the patient is pending an outpatient treatment intake today with [facility] [employer]. This was required by his regulatory compliance officer. Patient reports sobriety from opioids since March 2024, although previous documentation from 06/06/24 notes that he had fentanyl use in May. Patient reports occasional use of speed/meth via smoking, although he states that this is very rare. He notes that he uses meth when he runs out of Zubsolv and can't get to [facility] for a refill since it helps with withdrawal symptoms. Patient notes that he was given a Sublocade injection 6 months ago but he relapsed and did not continue this. He is interested in getting back on the injection. Patient was scheduled for an 11:20 am Transfer of Care appointment tomorrow, 09/26/23, with Dr. Matos. He was asked to arrive by 11 am for a urine drug screen. He was informed that if the provider agrees to proceed with a Sublocade injection order, prior authorization will be initiated with his [employer] insurance for approval of coverage. * Telephone Encounter - Kai Valenzuela BSN, RN - 06/06/2024 4:37 PM MACHINE SHOP REPAIR TECHNICIAN MAT Clinic received a referral from Dr. Barreto for the patient to transfer care to the MAT Clinic forZubsolv prescribing. Patient was previously seen for one consult visit with the MAT Clinic on 03/20/24, but he declined transferring care. Per 03/20/24 note, Shyam had decided to not establish care here with [facility] MAT clinic and instead continue his care through the [facility] recovery clinic. This seemed to be due frequency of visits as well as staying on 32 mg of Suboxone. Had recommended a maximum dose of 24 mg of Suboxone here. This RN contacted the patient and he noted that he has continued with MAT prescribing since seeing the MAT Clinic and he is on Zubsolv 11.4-2.9 mg tablet twice daily currently through the [facility]. Notably, the patient was at [facility] when he was last seen with the MAT Clinic and he continued his stay thereafter for a little while. Patient noted that he left [facility] for one month and returned to the [facility] where he was staying in a hotel. During this time, he reported a 3-day relapse starting on 05/17/24. Patient states that he was using fentanyl powder via smoking, and he used about $250 worth over 3 days. Last fentanyl use was 05/20/24. Patient noted that hedid not stop taking Zubsolv during this relapse. He stated that continuing the Zubsolv limited the euphoric effect of the drug which helped him not continue to use. Patient stated that following thisrelapse, he was visiting family for Thanksgiving. Patient returned to [place] and readmitted to [facility] yesterday, 06/05/24. Patient noted that his [employer] insurance lapsed in the beginning of June and it won't be active for about another 3 weeks. He informed this RN that he is interested in transferring care to the [facility] MAT Clinic but he is unsure if insurance issues would prevent him from obtaining a prescription, andhe has been nervous about running out of medication. Due to this, he started only taking one Zubsolv tablet per day (half of his usual dose) about 4 days ago to avoid running out of medication, but he is having some nausea, vomiting, and a stomach ache. Currently, he states that he has a week supply left if he took two per day. He stated that he is working with the [facility] Crisis unit for vt dication voucher/payment assistance so he can afford his medications. Per patient, they will pay for his prescriptions potentially if he uses [facility]. Patient was scheduled for a 1 pm readmission visit with Aftab Reza PA-C on 06/11/24. This RN recommended that the patient takes his Zubsolv dose as prescribed until his MAT appointment and it was requested that he bring in any remaining medication to this visit. Patient noted that [facility] manages his medications, so this RN mentioned that he will be asked to sign an KYLEE for [employer]. Patient agreed to this plan and noted thathe would be willing to comply with the MAT Clinic policies/guidelines including completing urine drug screens, coming to weekly appointments initially, and following the recommended visit progressionplan. INE SHOP REPAIR TECHNICIAN INE SHOP REPAIR TECHNICIAN documented in this encounter Plan of Treatment Not on file documented as of this encounter Visit Diagnoses Not on filedocumented in this encounter Care Teams Bar And Filler Assembler Relationship Specialty Start Date End Date None, Pcp [address] [facility] [place] [phone] PCP - General System Engineer 05/29/18 documented as of this encounter
--- OUTSIDE RECORDS SUMMARY | 2024-10-17 21:26 | XMS_ITS | Encounter Summary ---
Author Organization [facility] Address [address] [place] [address] Care Team Providers Care Nerve Specialist Name Role Phone Needs Pcp, Assignment Primary Care Provider Encounter Details Date Type Department Care Team (Latest Contact Info) Description 02/13/2019 Lab Requisition [facility] [address] 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 Not on file Not on file documented as of this encounter Plan of Treatment Not on file documented as of this encounter Procedures Procedure Name Priority Date/Time Associated Diagnosis Comments HEPATITIS C RNA QUANTITATIVE BY TMA Routine 02/14/2019 8:49 AM CDT Other symptoms and signs involving the musculoskeletal system CBC AND DIFFERENTIAL PANEL Routine 02/14/2019 8:49 AM CDT Other symptoms and signs involving the musculoskeletal system HEPATITIS PANEL ACUTE WITH REFLEX TO CONFIRMATION Routine 02/14/2019 8:49 AM CDT Other symptoms and signs involving the musculoskeletal system TREPONEMA SCREEN Routine 02/14/2019 8:49 AM CDT Other symptoms and signs involving the musculoskeletal system HIV 1/2 AG/AB 4TH GEN Routine 02/14/2019 8:49 AM CDT Other symptoms and signs involving the musculoskeletal system COMPLETE BLOOD COUNT-W/DIFF Routine 02/14/2019 8:49 AM CDT Other symptoms and signs involving the musculoskeletal system BASIC METABOLIC PANEL Routine 02/14/2019 8:49 AM CDT Other symptoms and signs involving the musculoskeletal system documented in this encounter Results * (ABNORMAL) Hepatitis C RNA Quant by TMA (02/14/2019 8:49 AM CDT) Pathologist [facility] HCV Quantitative Interpretation Detected (A) Not Detected 02/15/2019 1:09 PM CDT [facility] HCV Quantitative [IU]/mL 15,057(H ) <10 IU/mL 02/15/2019 1:09 PM CDT [facility] HCV Quantitative 4.18(H) <1.0 log IU/mL 02/15/2019 1:09 PM CDT [facility] Blood Venipuncture / Unknown 02/14/2019 8:49 AM CDT 02/14/2019 1:51 PM CDT Narrative [facility] - 02/15/2019 1:09 PM CDT Testing performed by Brazing Machine Feeder Mediated Amplification us Serafin Varela LAB_1 Final Result [facility] [address] [place] [address], [facility] [phone] * Complete Blood Count-W/Diff (02/14/2019 8:49 AM CDT) [facility] WBC 5.3 3.5 - 10.5 x10(9)/L 02/14/2019 1:59 PM CDT [facility] RBC 4.77 4.32 - 5.72 x10(12)/L 02/14/2019 1:59 PM CDT [facility] Hemoglobin 13.9 13.5 - 17.5 g/dL 02/14/2019 1:59 PM CDT [facility] HCT 43.6 38.8 - 50.0 % 02/14/2019 1:59 PM CDT [facility] MCV 91.4 80.0 - 100.0 fL 02/14/2019 1:59 PM CDT [facility] MCH 29.1 27.6 - 33.3 pg 02/14/2019 1:59 PM CDT [facility] MCHC 31.9 31.5 - 35.2 g/dL 02/14/2019 1:59 PM CDT [facility] RDW 14.4 11.9 - 15.5 % 02/14/2019 1:59 PM CDT [facility] Platelets 263 150 - 450 x10(9)/L 02/14/2019 1:59 PM CDT [facility] Automated NRBC 0 <=0 /100 WBC 02/14/2019 1:59 PM CDT [facility] Neutrophil Absolute 3.0 1.7 - 7.0 10(9)/L 02/14/2019 1:59 PM CDT [facility] Lymphocyte Absolute 1.7 1.0 - 4.8 10(9)/L 02/14/2019 1:59 PM CDT [facility] Monocyte Absolute 0.4 0.2 - 0.9 10(9)/L 02/14/2019 1:59 PM CDT [facility] Eosinophil Absolute 0.2 0.0 - 0.5 10(9)/L 02/14/2019 1:59 PM CDT [facility] Basophil Absolute 0.0 0.0 - 0.3 10(9)/L 02/14/2019 1:59 PM CDT [facility] Immature Granulocyte % 0.2 0.0 - 0.5 % 02/14/2019 1:59 PM CDT [facility] Blood Venipuncture / Unknown 02/14/2019 8:49 AM CDT 02/14/2019 1:52 PM CDT Serafin Varela LAB_1 Final Result Performing Organization Address [facility] de Phone Number [facility] [address] [place] [address] * Treponema Screen (02/14/2019 8:49 AM CDT) Treponema Screen Result 0.062 {s_co_ratio } 02/14/2019 2:45 PM CDT [facility] Treponema Screen Interpretation Non Reactive Non Reactive 02/14/2019 2:45 PM CDT [facility] Blood Venipuncture / Unknown 02/14/2019 8:49 AM CDT 02/14/2019 1:51 PM CDT Serafin Varela LAB_1 Final Result Performing Organization Address [facility] Phone Number [facility] [address] [place] [address] * HIV 1/2 Ag/Ab 4th Generation (02/14/2019 8:49 AM CDT) Pathologist [facility] HIV 1/2 Antigen/Antib raúl (4th generation) Negative (Non Reactive) Negative (Non Reactive) 02/14/2019 2:28 PM CDT [facility] Comment:HIV-1 p24 Antigen an d HIV-1/HIV-2 Antibody not detected Blood Venipuncture / Unknown 02/14/2019 8:49 AM CDT 02/14/2019 1:51 PM CDT Serafin Varela LAB_1 Final Result Performing Organization Address [facility] de Phone Number [facility] [address] [place] [address] * (ABNORMAL) Acute Hepatitis Panel (with Reflex) (02/14/2019 8:49 AM CDT) Hepatitis A Antibody, IgM Negative (Non Reactive) Negative (Non Reactive) 02/14/2019 2:31 PM CDT [facility] Comment:IgM anti-HAV not det ected. Does not exclude the possibility of exposure to or infection with HAV. Levels of IgM anti-HAV may be below the cut-off in early infection. Hepatitis Bc Antibody,IgM Negative (Non Reactive) Negative (Non-Reacti ve) 02/14/2019 2:31 PM CDT [facility] Comment:IgM anti-HBc not det ected. Does not exclude the possibility of exposure to or infection with HBV. Hepatitis B Surface Antigen Negative (Non Reactive) Negative (Non Reactive) 02/14/2019 2:31 PM CDT [facility] Hepatitis C Antibody Positive (Reactive)( A) Negative (Non Reactive) 02/14/2019 2:31 PM CDT [facility] Comment:Presumptive evidence of antibodies to HCV. Per the CDC's recommended guidelines, HCV Quantitative RNA testing has been ordered. Blood Venipuncture / Unknown 02/14/2019 8:49 AM CDT 02/14/2019 1:51 PM CDT Serafin Varela LAB_1 Final Result [facility] [address] * Basic Metabolic Panel (02/14/2019 8:49 AM CDT) Sodium 139 136 - 145 mmol/L 02/14/2019 2:27 PM CDT [facility] Potassium 4.5 3.5 - 5.1 mmol/L 02/14/2019 2:27 PM CDT [facility] Chloride 106 98 - 109 mmol/L 02/14/2019 2:27 PM CDT [facility] CO2 25 20 - 29 mmol/L 02/14/2019 2:27 PM CDT [facility] Anion Gap 8 7 - 16 mmol/L 02/14/2019 2:27 PM CDT [facility] Calcium 9.2 8.4 - 10.4 mg/dL 02/14/2019 2:27 PM CDT [facility] BUN 17 7 - 26 mg/dL 02/14/2019 2:27 PM CDT [facility] Creatinine 0.84 0.73 - 1.18 mg/dL 02/14/2019 2:27 PM CDT [facility] GFR, Estimated >60 >60 mL/min/1.7 3m2 02/14/2019 2:27 PM CDT [facility] GFR, Est If >60 >60 mL/min/1.7 3m2 02/14/2019 2:27 PM CDT [facility] Glucose 83 70 - 100 mg/dL 02/14/2019 2:27 PM CDT [facility] Comment:The given reference range is for the fasting state. Non-fasting reference range for glucose is 70 - 180 mg/dL. Hours Fasting Unknown 02/14/2019 2:27 PM CDT [facility] Blood Venipuncture / Unknown 02/14/2019 8:49 AM CDT 02/14/2019 1:51 PM CDT us Serafin Varela LAB_1 Final Result [facility] [address] [place] [address], [facility] documented in this encounter Visit Diagnoses Diagnosis Other symptoms and signs involving the musculoskeletal system documented in this encounter Care Teams Nerve Specialist Relationship Specialty Start Date [place] [address] PCP - General 01/20/16 documented as of this encounter
--- OUTSIDE RECORDS SUMMARY | 2024-10-17 21:26 | XMS_ITS | Encounter Summary ---
Author Organization [facility] er Address [address] [place] [address] Care Team Providers Care Pulp Grinder Name Role Phone None, Pcp Primary Care Provider Unavailabl e Reason for Visit * Reason Comments Med Refill Encounter Details Date Type Department Care Team (Latest Contact Info) Description 09/14/2024 4:10 PM CDT Office Visit [facility] Asthma & Allergy [address] [place] [id number] Ethan Barreto MD [address] [place] [address] Attention deficit hyperactivity disorder (ADHD), combined type Social History Tobacco Use Types Packs/Day Years Used Date Smoking Tobacco: Every Day Cigarettes Smokeless Tobacco: Former PHQ-2 Answer Date Recorded PHQ-9 Total Score 9 09/14/2024 Sex and Gender Information Value Date Recorded Sex Assigned at Not on file 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 Gender Identity Not on file Sexual Orientation Not on file documented as of this encounter Last Filed Vital Signs Vital Sign Reading Time Taken Comments Blood Pressure 162/115 09/14/2024 4:02 PM CDT patient states he had multible red bulls today Pulse 125 09/14/2024 4:00 PM CDT Temperature 37.6 C (99.6 F) 09/14/2024 4:00 PM CDT Respiratory Rate 17 09/14/2024 4:00 PM CDT Oxygen Saturation - - Inhaled Oxygen Concentration - - Weight 70.4 kg (155 lb 3.3 oz) 09/14/2024 4:00 PM CDT Height 188.5 cm (6' 2.21) 09/14/2024 4 :00 PM CDT Body Mass Index 19.81 09/14/2024 4:00 PM CDT documented in this encounter Progress Notes * Ethan Barreto MD - 09/14/2024 4:10 PM CDT Subjective Patient ID: Cristi Licea is a 29 y.o. male. Chief Complaint Patient presents with Med Refill History of Present Illness HPI History ADHD. Patient taking Adderall. CSA on file. Patient has been keeping faithful appointments.Urine drug screen in June was as expected. In August it did show Suboxone as expected. Recheck today. Patient also requesting medical opinion form completion. Review of Systems Review of Systems Per the history of present illness. The patient denied any other active medical problems or concerns. Allergies Trazodone Medications Current Outpatient Medications: amitriptyline (ELAVIL) 25 MG tablet, Take 1 tablet (25 mg total) by mouth every night PRN, Disp: 30tablet, Rfl: 2 Zubsolv 11.4-2.9 MG sublingual tablet, Place 1 tablet under the tongue 2 times daily, Disp: , Rfl: amphetamine-dextroamphetamine (Adderall) 30 MG tablet, Take 1 tablet (30 mg total) by mouth 1 (one)time each day, Disp: 30 tablet, Rfl: 0 amphetamine-dextroamphetamine XR (ADDERALL XR) 30 MG 24 hr capsule, Take 1 capsule (30 mg total) bymouth 1 (one) time each day in the morning, Disp: 30 capsule, Rfl: 0 The following portions of the patient's chart were reviewed in this encounter and updated as appropriate: Tobacco Allergies Meds Problems Med Hx Surg Hx Fam Hx Objective Physical Exam Vital signs are as per the chart Physical examination in general patient pleasant no apparent distress Assessment/Plan Diagnoses and all orders for this visit: Attention deficit hyperactivity disorder (ADHD), combined type - amphetamine-dextroamphetamine XR (ADDERALL XR) 30 MG 24 hr capsule; Take 1 capsule (30 mg total) by mouth 1 (one) time each day in the morning - amphetamine-dextroamphetamine (Adderall) 30 MG tablet; Take 1 tablet (30 mg total) by mouth 1 (one) time each day Plans as above. documented in this encounter Plan of Treatment Not on file documented as of this encounter Visit Diagnoses Diagnosis Attention deficit hyperactivity disorder (ADHD), combined type documented in this encounter Care Teams Pulp Grinder Relationship Specialty Start Date End Date None, Pcp [address] [place] [address] PCP - General Eeg Technologist 05/29/18 documented as of this encounter
--- OUTSIDE RECORDS SUMMARY | 2024-10-17 21:26 | XMS_ITS | Encounter Summary ---
Author Organization [facility] Address [address] [place] [address] Care Team Providers Care Drawer Fitter Name Role Phone Needs Pcp, Assignment Primary Care Provider [phone] Encounter Details Date Type Department Care Team (Late st Contact Info) Description 04/13/2019 Lab Requisition [facility] [address] 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
--- OUTSIDE RECORDS SUMMARY | 2024-10-17 21:26 | XMS_ITS | Clinical Summary ---
Author Organization [facility] er Address [address] [place] [address] Care Team Providers Care Angle Bender Name Role Phone None, Pcp Primary Care Provider Unavailabl e Allergies Active Allergy Reactions Criticality Noted Date Comments Trazodone Other (see comments) 08/31/2016 Headache Medications * This document contains information received from the source organization and may not represent a complete record from that organization. Zubsolv 11.4-2.[address] 1 tablet under the tongue 2 times daily 03/30/20 24 Active amitriptyline (ELAVIL) 25 MG tabletIndications :Chronic insomnia Take 1 tablet (25 mg total) by mouth every night PRN 30 tablet 2 06/05/20 24 025 Active amphetamine-dextr oamphetamine XR (ADDERALL XR) 30 MG 24 hr capsuleIndication s:Attention deficit hyperactivity disorder (ADHD), combined type Take 1 capsule (30 mg total) by mouth 1 (one) time each day in the morning 30 capsule 09/15/19 25 025 Discontinued(Re order) amphetamine-dextr oamphetamine (Adderall) 30 MG tabletIndications :Attention deficit hyperactivity disorder (ADHD), combined type Take 1 tablet (30 mg total) by mouth 1 (one) time each day 30 tablet 09/15/19 25 025 Discontinued(Re order) amphetamine-dextr oamphetamine (Adderall) 30 MG tabletIndications :Attention deficit hyperactivity disorder (ADHD), combined type Take 1 tablet (30 mg total) by mouth 1 (one) time each day 30 tablet 10/13/19 25 025 Discontinued amphetamine-dextr oamphetamine XR (ADDERALL XR) 30 MG 24 hr capsuleIndication s:Attention deficit hyperactivity disorder (ADHD), combined type Take 1 capsule (30 mg total) by mouth 1 (one) time each day in the morning 30 capsule 10/13/19 25 025 Discontinued Active Problems Problem Noted Date Diagnosed Date Opioid use disorder, severe, dependence 03/20/20 Methamphetamine use disorder, severe, dependence 03/20/2024 Attention deficit hyperactivity disorder (ADHD) 11/08/2022 Adult antisocial behavior 11/24/2019 Acute hepatitis C virus infection without hepati c coma 03/20/2019 Intractable migraine without aura and with status migrainosus 06/01/2018 Stimulant abuse 10/11/2016 Nondependent opioid abuse 08/12/2016 Psychoactive substance dependence 08/12/2016 Mood disorder 05/02/2013 Psychoactive substance abuse 05/02/2013 Nondependent cannabis abuse 04/27/2012 Overview (03/20/2024): Problem list name updated by automated process. Provider to review Overview: Problem list name updated by automated process. Provider to review Problem list name updated by automated process. Provider to review Overview: Problem list name updated by automated process. Provider to review Other conduct disorders 04/27/2012 Overview (03/20/2024): Diagnosis updated by automated process. Provider to review and confirm. Smoker 12/20/2011 Overview (03/20/2024): 1 pack per day Overview: 1 pack per day Drug abuse and dependence 04/06/2010 Overview (03/20/2024): Prescription pain pills, meth, marijuana, heroin. Overview: Prescription pain pills, meth, marijuana, heroin. Resolved Problems Problem Noted Date Diagnosed Date Resolved Date Altered mental status 03/03/20202023 IVDU (intravenous drug user) 11/24/2019 03/20/2024 Malingering 11/24/2019 03/20/2024 Overview (03/20/2024): Repeated presentations to ED after telling police he swallowed bags of meth or heroin to avoid arrest, then leaves AMA. Repeated presentations to ED after telling police he swallowed bags of meth or heroin to avoid arrest, then leaves AMA. Heroin abuse 11/24/2019 03/20/2024 Substance abuse withdrawal with complication 9 03/20/2024 Poisoning by unspecified deanne gs, medicaments and biological substances, intentional self-harm, initial encounter 10/27/2018 03/20/2024 Overdose 10/11/2016 03/20/2024 Overview (03/20/2024): Methamphetamine ingestion Methamphetamine abuse 10/11/20162023 Intoxication by drug 03/28/2013 024 Encounters Date Type Department Care Team Description 10/04/2024 11:40 AM CDT Office Visit [facility] [address] [place] [id number] Ethan Barreto MD Attention deficit hyperactivity disorder (ADHD), combined type (Primary Dx); Opioid use disorder 09/14/2024 4:10 PM CDT Office Visit [facility] [address] [place] [id number] Ethan Barreto MD Attention deficit hyperactivity disorder (ADHD), combined type 08/07/2024 2:00 PM SHELLFISH DREDGE OPERATOR Lab [facility] [address] [place] [id number] Attention deficit hyperactivity disorder (ADHD), combined type 08/07/2024 1:50 PM SHELLFISH DREDGE OPERATOR Office Visit [facility] [address] [place] [address] Ethan Barreto MD Attention deficit hyperactivity disorder (ADHD), combined type (Primary Dx) 08/07/2024 Orders Only [facility] [address] [place] [address] Ethan Barreto MD Attention deficit hyperactivity disorder (ADHD), combined type from Last 3 Months Social History Tobacco Use Types Packs/Day Years Used Date Smoking Tobacco: Every Day Cigarettes Smokeless Tobacco: Former Tobacco Cessation:Ready to Q uit: Not Asked; Counseling Given: Not Answered PHQ-2 Answer Date Recorded PHQ-9 Total Score 5 10/04/2024 Sex and Gender Information Value Date Recorded Sex Assigned at Not on file Legal Sex Male 8:29 AM SHELLFISH DREDGE OPERATOR Gender Identity Not on file Sexual Orientation [...] Mass Index 20.2 10/04/2024 11:46 AM CDT Plan of Treatment Health Maintenance Due Date Last Done Comments DTaP,Tdap,and Td Vaccines (7 - Td or Tdap) 05/23/2018 05/23/2008, 04/04/2003, 12/10/1998, Additional history exists Pneumococcal Vaccine: Pediatrics (0 to 5 Years) and At-Risk Patients (6 to 49 Years) (2 of 2 - PCV) 04/28/2021 04/28/2020 COVID-19 Vaccine ( season) 2024 05/12/2022, 07/16/2021, 12/31/2020, Additional history exists Influenza Vaccine (#1) 2024 04/28/2020 HPV Vaccines Aged Out No longer eligi ble based on patient's age to complete this topic Procedures Procedure Name Priority Date/Time Associated Diagnosis Comments THC (MARIJUANA), URINE, WITH CONFIRMATION Routine 08/07/2024 1:36 PM SHELLFISH DREDGE OPERATOR CONTROLLED SUBSTANCES MONITORING PANEL, URINE Routine 08/07/2024 1:36 PM SHELLFISH DREDGE OPERATOR Attention deficit hyperactivity disorder (ADHD), combined type from Last 3 Months Results * (ABNORMAL) Controlled Substance Monitoring Panel, Urine (08/07/2024 1:36 PM SHELLFISH DREDGE OPERATOR) Barbiturates Negative Cutoff : 200 ng/mL 10:59 AM [facility] Cocaine Negative Cutoff : 150 ng/mL 10:59 AM [facility] Comment: This cocaine immunoassay targets benzoylecgonine the primary metabolite of cocaine. Tetrahydrocannabinol SEE BELOW(A) Cutoff : 50 ng/mL 10:59 AM [facility] Comment: Presumptive Positive This immunoassay targets delta-9 tetrahydrocannabinol carboxylic acid (THC-COOH), a metabolite of delta-9 tetrahydrocannabinol the main psychoactive ingredient of marijuana. Drug confirmation to follow. Presumptive Positive means that the screening method is positive, but the test needs to be run by a confirmatory method before being finalized. ADDITIONAL INFORMATION This report is intended for use in clinical monitoring or management of patients. It is not intended for use in employment-related testing. Codeine Not Detected Cutoff : 25 ng/mL 10:59 AM [facility] Comment: Tylenol 3 Bumubgu-1-icuj-glucuronide Not Detected Cutoff : 100 ng/mL 10:59 AM [facility] Comment: Metabolite of codeine Morphine Urine Not Detected Cutoff : 25 ng/mL 10:59 AM [facility] Comment: Yashira Santos, MS Contin; Also a minor metabolite (10%) of codeine and can be seen in low concentrations (<2,000 ng/mL) with poppy seed ingestion. Mqxkhckr-6-moag-glucuronide Not Detected Cutoff : 100 ng/mL 10:59 AM [facility] Comment: Metabolite of morphine 6-monoacetylmorphine Not Detected Cutoff : 25 ng/mL 10:59 AM [facility] Comment: Metabolite of heroin Hydrocodone Not Detected Cutoff : 25 ng/mL 10:59 AM [facility] Comment: Lortab, [place], Vicodin; Also a very minor metabolite of codeine and impurity (<1%) of oxycodone. Norhydrocodone Not Detected Cutoff : 25 ng/mL 10:59 AM [facility] Comment: Metabolite of hydrocodone Dihydrocodeine Not Detected Cutoff : 25 ng/mL 10:59 AM [facility] Comment: Metabolite of hydrocodone Hydromorphone Not Detected Cutoff : 25 ng/mL 10:59 AM [facility] Comment: Dilaudid, Exalgo; Also a metabolite of hydrocodone and a minor (<5%) metabolite of morphine. Yzxlggyrudemw-5-wcnl-glucuro n cheyanne Not Detected Cutoff : 100 ng/mL 10:59 AM [facility] Comment: Metabolite of hydromorphone Oxycodone Not Detected Cutoff : 25 ng/mL 10:59 AM [facility] Comment: Endocet, Percocet, Oxycontin Noroxycodone Not Detected Cutoff : 25 ng/mL 10:59 AM [facility] Comment: Metabolite of oxycodone Oxymorphone Not Detected Cutoff : 25 ng/mL 10:59 AM [facility] Comment: Numorphan, Opana; Also a metabolite of oxycodone. Bbehgcuekde-9-htdm-glucuroni d e Not Detected Cutoff : 100 ng/mL 10:59 AM [facility] Comment: Metabolite of oxymorphone and/or naloxone (nornaloxone) Noroxymorphone Not Detected Cutoff : 25 ng/mL 10:59 AM [facility] Comment: Metabolite of oxymorphone and/or naloxone (nornaloxone) Fentanyl by LC-MS/MS Not Detected Cutoff : 2 ng/mL 5 10:59 AM [facility] Comment: Actiq, Duragesic, Fentora Norfentanyl by LC-MS/MS Not Detected Cutoff : 2 ng/mL 5 10:59 AM [facility] Comment: Metabolite of fentanyl Meperidine Not Detected Cutoff : 25 ng/mL 5 10:59 AM [facility] Comment: Demerol Normeperidine Not Detected Cutoff : 25 ng/mL 5 10:59 AM [facility] Comment: Metabolite of meperidine Naloxone Not Detected Cutoff : 25 ng/mL 5 10:59 AM [facility] Comment: Narcan Wmazjapc-6-tjol-glucuronide Present(A ) Cutoff : 100 ng/mL 5 10:59 AM [facility] Comment: Metabolite of naloxone Methadone Not Detected Cutoff : 25 ng/mL 5 10:59 AM [facility] Comment: Dolophine EDDP Not Detected Cutoff : 25 ng/mL 5 10:59 AM [facility] Comment: Metabolite of methadone Propoxyphene Not Detected Cutoff : 25 ng/mL 5 10:59 AM [facility] Comment: Darvon, Darvocet Norpropoxyphene Not Detected Cutoff : 25 ng/mL 5 10:59 AM [facility] Comment: Metabolite of propoxyphene Tramadol Not Detected Cutoff : 25 ng/mL 5 10:59 AM [facility] Comment: Tradol, Ultram, Ultracet O-desmethyltramadol Not Detected Cutoff : 25 ng/mL 5 10:59 AM [facility] Comment: Metabolite of tramadol Tapentadol Not Detected Cutoff : 25 ng/mL 5 10:59 AM [facility] Comment: Nucynta N-desmethyltapentadol Not Detected Cutoff : 50 ng/mL 5 10:59 AM [facility] Comment: Metabolite of tapentadol Sinlivguok-viim-ialucwlwmrv Not Detected Cutoff : 100 ng/mL 5 10:59 AM [facility] Comment: Metabolite of tapentadol Buprenorphine Not Detected Cutoff : 5 ng/mL 5 10:59 AM [facility] Comment: Buprenex, Suboxone Norbuprenorphine Present(A ) Cutoff : 5 ng/mL 5 10:59 AM [facility] Comment: Metabolite of buprenorphine Norbuprenorphine glucuronide Present(A ) Cutoff : 20 ng/mL 5 10:59 AM [facility] Comment: Metabolite of buprenorphine Opioid Interpretation - 10:59 AM [facility] Comment: Test detected the presence of buprenorphine metabolites (norbuprenorphine and norbuprenorphine glucuronide) along with naloxone metabolite (mypqwsff-4-ltkx-glucuronide). Suspect use of buprenorphine with naloxone (e.g. Suboxone) within the past three days. ADDITIONAL INFORMATION This test was developed and its performance characteristics determined by [facility] in a manner consistent with CLIA requirements. This test has not been cleared or approved by the U.S. Food and Drug Administration. Creatinine, Urine 115.4 mg/dL 02 5 10:59 AM [facility] Specific [place], Urine 1.017 0 5 10:59 AM [facility] pH, Urine 7.1 5 10:59 AM [facility] Oxidants Negative Cutoff : 200 mg/L 10:59 AM [facility] Comment Normal 5 10:59 AM [facility] Alprazolam Not Detected Cutoff : 10 ng/mL 10:59 AM [facility] Comment: Xanax Alpha-Hydroxyalprazolam UR Not Detected Cutoff : 10 ng/mL 5 10:59 AM [facility] Comment: Metabolite of Alprazolam Alpha-Hydroxyalprazolam Glucuronide Not Detected Cutoff : 50 ng/mL 5 10:59 AM [facility] Comment: Metabolite of Alprazolam Chlordiazepoxide Not Detected Cutoff : 10 ng/mL 5 10:59 AM [facility] Comment: Librium Clobazam Not Detected Cutoff : 10 ng/mL 5 10:59 AM [facility] Comment: Marlyn Vidales N-Desmethylclobazam Not Detected Cutoff : 200 ng/mL 5 10:59 AM [facility] Comment: Metabolite of Clobazam Clonazepam Lvl Not Detected Cutoff : 10 ng/mL 5 10:59 AM [facility] Comment: Klonopin, Rivotril 7-Aminoclonazepam Not Detected Cutoff : 10 ng/mL 5 10:59 AM [facility] Comment: Metabolite of Clonazepam Diazepam UR Quant Not Detected Cutoff : 10 ng/mL 5 10:59 AM [facility] Comment: Valium Nordiazepam Not Detected Cutoff : 10 ng/mL 5 10:59 AM [facility] Comment: Metabolite of Chlordiazepoxide, Diazepam, or Prazepam. Flunitrazepam Not Detected Cutoff : 10 ng/mL 5 10:59 AM [facility] Comment: Rohypnol 7-Aminoflunitrazepam Not Detected Cutoff : 10 ng/mL 5 10:59 AM [facility] Comment: Metabolite of Flunitrazepam Flurazepam Not Detected Cutoff : 10 ng/mL 5 10:59 AM [facility] Comment: Dalmane 2- hydroxy ethyl flurazepam Not Detected Cutoff : 10 ng/mL 5 10:59 AM [facility] Comment: Metabolite of Flurazepam Lorazepam Not Detected Cutoff : 10 ng/mL 5 10:59 AM [facility] Comment: Ativan Lorazepam Glucuronide Not Detected Cutoff : 50 ng/mL 5 10:59 AM [facility] Comment: Metabolite of Lorazepam Midazolam Not Detected Cutoff : 10 ng/mL 5 10:59 AM [facility] Comment: Versed Alpha-Hydroxy Midazolam Not Detected Cutoff : 10 ng/mL 5 10:59 AM [facility] Comment: Metabolite of Midazolam Oxazepam Not Detected Cutoff : 10 ng/mL 5 10:59 AM [facility] Comment: Serax; Also a metabolite of Chlordiazepoxide, Diazepam, or Temazepam. Oxazepam Glucuronide Not Detected Cutoff : 50 ng/mL 5 10:59 AM [facility] Comment: Metabolite of Oxazepam Prazepam, urine Not Detected Cutoff : 10 ng/mL 5 10:59 AM [facility] Comment: Centrax Temazepam Not Detected Cutoff : 10 ng/mL 5 10:59 AM [facility] Comment: Restoril; Also a metabolite of Diazepam. Temazepam Glucuronide Not Detected Cutoff : 50 ng/mL 5 10:59 AM [facility] Comment: Metabolite of Temazepam Triazolam Not Detected Cutoff : 10 ng/mL 5 10:59 AM [facility] Comment: Halcion Alpha-Hydroxy Triazolam Not Detected Cutoff : 10 ng/mL 5 10:59 AM [facility] Comment: Metabolite of Triazolam Zolpidem Not Detected Cutoff : 10 ng/mL 5 10:59 AM [facility] Comment: Ambien Zolpidem Awoqnz-0-Vszsbmxwxg acid Not Detected Cutoff : 10 ng/mL 5 10:59 AM [facility] Comment: Metabolite of Zolpidem Benzodiazepine, Interp - 5 10:59 AM [facility] Comment: No benzodiazepines were detected. The absence of expected drug(s) and/or drug metabolite(s) may indicate non-compliance, altered pharmacokinetics, inappropriate timing of specimen collection relative to drug administration, diluted/adulterated urine, or limitations of testing. ADDITIONAL INFORMATION This test was developed and its performance characteristics determined by [facility] in a manner consistent with CLIA requirements. This test has not been cleared or approved by the U.S. Food and Drug Administration. Methamphetamine Not Detected Cutoff : 100 ng/mL 5 10:59 AM [facility] Comment: Desoxyn Amphetamines Not Detected Cutoff : 100 ng/mL 5 10:59 AM [facility] Comment: Dyanavel XR, Adzenys ER, Adderall, Vyvanse; Also a metabolite of methamphetamine 3,4 Methylenedioxymethamphetamine Not Detected Cutoff : 100 ng/mL 5 10:59 AM [facility] 3,4 Rolxzxrngdqcgr-W-tbxzcwslogkk mine (MDEA) Not Detected Cutoff : 100 ng/mL 5 10:59 AM [facility] 3,4 Methylenedioxyamphetamine Not Detected Cutoff : 100 ng/mL 5 10:59 AM [facility] Comment: Also a metabolite of MDMA and/or MDEA Ephedrines Not Detected Cutoff : 100 ng/mL 5 10:59 AM [facility] Psuedoephederine Not Detected Cutoff : 100 ng/mL 5 10:59 AM [facility] Comment: Sudafed Phentermine Not Detected Cutoff : 100 ng/mL 5 10:59 AM [facility] Comment: Adipex-P, Lomaira, Qsymia Phencyclidine (PCP) Not Detected Cutoff : 20 ng/mL 5 10:59 AM [facility] Methylphenidate Not Detected Cutoff : 20 ng/mL 5 10:59 AM [facility] Comment: Ritalin, Concerta Ritalinic Acid Not Detected Cutoff : 100 ng/mL 5 10:59 AM [facility] Comment: Metabolite of methylphenidate Stimulant Interpretation - 5 10:59 AM [facility] Comment: No stimulants were detected. The absence of expected drug(s) and/or drug metabolite(s) may indicate non-compliance, altered pharmacokinetics, inappropriate timing of specimen collection relative to drug administration, diluted/adulterated urine, or limitations of testing. ADDITIONAL INFORMATION This test was developed and its performance characteristics determined by [facility] in a manner consistent with CLIA requirements. This test has not been cleared or approved by the U.S. Food and Drug Administration. Test Performed by: [facility] - [address] [address] Business Strategist: Kyler Faulkner Ph.D.; CLIA# [id number] List patient's current medicaton Not provided 10:59 AM [facility] Comment: ADDITIONAL INFORMATION Accuracy and completeness of declared medications on reports solely dependent on information submitted by client. Urine 08/07/2024 1:36 PM SHELLFISH DREDGE OPERATOR 08/07/2024 3:29 PM SHELLFISH DREDGE OPERATOR us Ethan Barreto MD LAB URINE ORDERABLES Final Resul t [place] [id number], [place] * THC (marijuana), urine, with confirmation (08/07/2024 1:36 PM SHELLFISH DREDGE OPERATOR) Interpretation Positive. 08/09/2024 1:29 PM [facility] Comment: ADDITIONAL INFORMATION This report is intended for use in clinical monitoring and management of patients. It is not intended for use in employment-related testing. This test was developed and its performance characteristics determined by [facility] in a manner consistent with CLIA requirements. This test has not been cleared or approved by the U.S. Food and Drug Administration. Test Performed by: [facility] - [address] [address] Business Strategist: Kyler Faulkner Ph.D.; CLIA# [id number] Delta-8 Carboxy-THC by LC-MS/MS >1,000 Cutoff: 5 ng/mL 08/09/2024 1:29 PM [facility] Delta-9 Carboxy-THC by LC-MS/MS 151 Cutoff: 5 ng/mL 08/09/2024 1:29 PM [facility] 08/07/2024 1:36 PM SHELLFISH DREDGE OPERATOR 08/07/2024 3:29 PM SHELLFISH DREDGE OPERATOR us Ethan Barreto MD LAB URINE ORDERABLES Final Resul t [facility] [address] [place] [address], from Last 3 Months Insurance [facility] [employer] Care Teams Angle Bender Relationship Specialty Start Date End Date None, Pcp [address] [place] [place] [address] PCP - General Piercer 05/29/18
--- OUTSIDE RECORDS SUMMARY | 2024-10-17 21:26 | XMS_ITS | Encounter Summary ---
Author Organization [facility] er Address [address] [place] [address] Care Team Providers Care Set Builder Name Role Phone None, Pcp Primary Care Provider Unavailabl e Reason for Visit * Reason Onset Date Comments Med Refill 08/08/2018 Encounter Details Date Type Department Care Team (Late st Contact Info) Description 08/07/2018 Refill [facility] [address] [place] [address] [id number] Ethan Barreto MD [address] [place] [address] Attention deficit hyperactivity disorder (ADHD), combined type; Insomnia, unspecified type Social History Tobacco Use Types Packs/Day Years Used Date Smoking Tobacco: Every Day Cigarettes Smokeless Tobacco: Former Sex and Gender Information Value Date Recorded Sex Assigned at Not on file Legal Sex Male 8:29 AM INSURANCE RATER Gender Identity Not on file Sexual Orientation Not on file documented as of this encounter Plan of Treatment Not on file documented as of this encounter Visit Diagnoses Diagnosis Attention deficit hyperactivity disorder (ADHD), combined type Insomnia, unspecified type documented in this encounter Care Teams Set Builder Relationship Specialty Start Date End Date None, Pcp [address] [place] [address] PCP - General [employer] Spray Supervisor 05/29/18 documented as of this encounter
--- OUTSIDE RECORDS SUMMARY | 2024-10-17 21:26 | XMS_ITS | Encounter Summary ---
Author Organization [facility] Address [address] [place] [address] Care Team Providers Care Sales Representative Consultant Name Role Phone Needs Pcp, Assignment Primary Care Provider [phone] Encounter Details Date Type Department Care Team (Late st Contact Info) Description 02/22/2019 Lab Requisition [facility] [address] [place], [place] [id number] Serafin Varela MD [address] [place] [phone] Social History Tobacco Use Types Packs/Day Years [...] Industry Job Start Date Job End Date [employer] Not on file Not on file Not on file documented as of this encounter Plan of Treatment Not on file documented as of this encounter Procedures Procedure Name Priority Date/Time Associated Diagnosis Comments LIVER PANEL(HEPATIC FUNCTION PANEL) Routine 02/23/2019 10:15 AM CDT Liver disease ([facility]) documented in this encounter Results * (ABNORMAL) Liver Panel (Hepatic Function Panel) (02/23/2019 10:15 AM CDT) Alkaline Phosphatase 61 40 - 150 U/L 02/23/2019 2:29 PM CDT [facility] Bilirubin, Total 0.6 0.2 - 1.2 mg/dL 02/23/2019 2:29 PM CDT [facility] Bilirubin, Direct 0.3 0.0 - 0.5 mg/dL 02/23/2019 2:29 PM CDT [facility] AST (SGOT) 46(H) 10 - 40 U/L 02/23/2019 2:29 PM CDT [facility] ALT (SGPT) 212(H) 0 - 55 U/L 02/23/2019 2:29 PM CDT [facility] Protein, Total 7.9 6.4 - 8.3 g/dL 02/23/2019 2:29 PM CDT [facility] Albumin 4.4 3.5 - 5.0 g/dL 02/23/2019 2:29 PM CDT [facility] Blood Venipuncture / Unknown 02/23/2019 10:15 AM CDT 02/23/2019 12:38 PM CDT us Serafin Varela MD LAB_1 Final Result [facility] [address] [place] [address], [facility] documented in this encounter Visit Diagnoses Diagnosis Liver disease ([facility]) Unspecified disorder of liver documented in this encounter Care Teams Sales Representative Consultant Relationship Specialty Start Date End [place] [address] PCP - General 01/20/16 documented as of this encounter
--- OUTSIDE RECORDS SUMMARY | 2024-10-17 21:26 | XMS_ITS | Encounter Summary ---
Author Organization [facility] Address [address] [place] [address] Care Team Providers Care Soil Sort Worker Name Role Phone Pastora Peters MD Primary Care Provider [phone] Confirmed, No Pcp Primary Care Provider Unavaila ble No Ref-Primary, Physician Primary Care Provider No Ref-Primary, Physician Primary Care Provider System, Provider Not In Primary Care Provider Un available No Ref-Primary, Physician Primary Care Provider System, Provider Not In Unavailable Unavaila ble No Ref-Primary, Physician Unavailable [phone] No Ref-Primary, Physician Unavailable [phone] Taisha Balderrama APRN MANAGER OF TAX Unavailable [phone] Encounter Details Date Type Department Care Team (Late st Contact Info) Description 03/29/2013 Telephone [facility] Behavioral Health Intake [address] [place] [phone] Generic, Behavioral Intake, Social History Tobacco Use Types Packs/Day Years Used Date Smoking Tobacco: Every Day Cigarettes Smokeless Tobacco: Never Alcohol Use Standard Drinks/Week Comments Yes 0 (1 standard drink = 0.6 oz pur e alcohol) monthly Sex and Gender Information Value Date Recorded Sex Assigned at Not on file 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 B-Emphasized Dr Carbajal's concerns that family is not fully on board with 6A admit. Pt states he will go to 6A to be admitted but then his parents will come 1 hour later to check him out. The recommendation is for CD TREATMENT but is a mental health unit which requires a MH diagnosis primarily as well as need for cd evaluation. OP intake ([phone]) can also help with a referral to their residential program after a CD eval is completed. A-I asked Dr Jay to check in w/me later today if needed. R-No call from her as yet. I did speak with Supervisor Accounting Clerks around 11am and directed her to eitherDr Jay or NILE for this pts placement in CD tx. Mary Ellen Scott Released bed on 6A documented in this encounter Plan of Treatment Not on file documented as of this encounter Visit Diagnoses Not on filedocumented in this encounter Additional Health Concerns Infection Onset Date Last Indicated Resolved Time Rule Out COVID-19 04/09/2023 04/09/2023 04/09/2023 5:03 AM CDT documented as of this encounter Care Teams Soil Sort Worker Relationship Specialty Start Date End Date Pastora [...] No Ref-Primary, Physician 04/25/19 Taisha Balderrama APRN MANAGER OF TAX [facility] [address] [place] [address] Assigned Behavioral Health Provider 01/24/24 documented as of this encounter
--- OUTSIDE RECORDS SUMMARY | 2024-10-17 21:26 | XMS_ITS | Encounter Summary ---
Author Organization [facility] Address [address] [facility] [address] Care Team Providers Care Spacecraft Systems Engineer Name Role Phone Confirmed, No Pcp Primary Care Provider Unavaila ble No Ref-Primary, Physician Primary Care Provider No Ref-Primary, Physician Primary Care Provider System, Provider Not In Primary Care Provider Un available No Ref-Primary, Physician Primary Care Provider System, Provider Not In Unavailable Unavaila ble No Ref-Primary, Physician Unavailable [phone] No Ref-Primary, Physician Unavailable [phone] Taisha Balderrama APRN RADIATION ONCOLOGY MANAGER Unavailable [phone] Reason for Visit * Reason Onset Date Comments Lodging Plus 08/02/2016 lodging screen Encounter Details Date Type Department Care Team ([facility] st Contact Info) Description 08/02/2016 Telephone [facility] Behavioral Health Intake [address] [place] [phone] Generic, Behavioral IntakeMD [facility] (lodging screen) Social History Tobacco Use Types Packs/Day Years Used Date Smoking Tobacco: Every Day Cigarettes Smokeless Tobacco: Never Alcohol Use Standard Drinks/Week Comments Yes 0 (1 standard drink = 0.6 oz pur e alcohol) monthly Sex and Gender Information Value Date Recorded Sex Assigned at Not on file 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 Gender Identity Not on file Sexual Orientation Not on file documented as of this encounter Miscellaneous Notes * Telephone Encounter - Caryl Stover LADC - 08/12/2016 10:11 AM CST SBAR Name: Cristi Licea Date of : 1995 Age: [age] year old Gender: male Insurance: [facility] Precipitating Event: Treatment due to own awareness of need for help, Treatment due to pressure from the legal system and Treatment as a condtion of probation/parole DOC: Meth/Amphetamines and Heroin Additional abused substances: Alcohol, Marijuana, Benzodiazepines and Nicotine Medical: Joint pain in his elbows Mental Health: Rule out ADHD Previous Treatments: No prior IP detoxification admission(s). 3 prior CD treatment(s). Psychosocial: Single, in a serious relationship No children Stable housing and no concerns Good support network, Relationship conflict with family members or friends due to substance abuse, Current legal issues, Current court probation or parole and Unemployed Suicide Risk Status: Emergent? No Urgent / Non-Emergent? No Present / Non- Urgent? No No Current Risk? Yes, Evaluation Counselors - Document in Epic / SBAR to counselor No identified risk and Treatment Counselors - Assess weekly in progress notes under Dimension 3 and summarize in Discharge / Treatment summary under Dimension 3. Additional Info as needed: Goes by Shyam ESPONDENT * Telephone Encounter - Jamaal Pitt - 08/09/2016 12:58 PM CST PO called back and he will admit on 08/12 at 10:00am but will arrive at 9:00am for 1/2 eval. Was reminded that he needs to bring a 30 day supply of meds and that he needs to be sober and not at risk of withdrawal. ESPONDENT * Telephone Encounter - Jamaal Pitt - 08/09/2016 10:02 AM CST L+ bed available, had to leave a message for the PO to set up admit. ESPONDENT * Telephone Encounter - Ashley Moreira - 08/05/2016 11:14 AM CST Placed on priority list. ESPONDENT * Telephone Encounter - Mandeep Mathews LADC - 08/05/2016 10:58 AM CORRESPONDENT 08/05/2016 Cristi is ok for the priority LP list, (because he is an IV user) probably better in the male group. He will need a 1/2 eval if he gets in on or before . He has [facility] pmap. He is currently in snf. His best contact is his [place] [employer]. PO, Rigo Reyes [phone]. Please call Rigo who will coordinate admission so that he is a direct admission from snf. Alfie said that all of Cristi's domestic issues are CD related, he has no problems when he is sober. Mandeep Mathews [facility] TONIO ESPONDENT * Telephone Encounter - Aftab Douglas - 08/03/2016 9:20 AM CST 08/03/16 Received Rule 25 Assessment from Whitney Couch ([facility]/ [phone]) faxed to the OP CD Program for review. JT ESPONDENT * Telephone Encounter - Héctor Oconnor - 08/02/2016 2:27 PM CST Ref seeking lodging screen. Pt is currently incarcerated in [facility] snf. Ref will fax collateral for review. Ref will also add to docs ins data. ESPONDENT documented in this encounter Plan of Treatment Not on file documented as of this encounter Visit Diagnoses Not on filedocumented in this encounter Additional Health Concerns Infection Onset Date Last Indicated Resolved Time Rule Out COVID-19 04/09/2023 04/09/2023 04/09/2023 5:03 AM CDT documented as of this encounter Care Teams Spacecraft Systems Engineer Relationship Specialty Start Date End Date Confirmed, No Pcp PCP - General 05/24/16 03/03/17 No Ref-Primary, Physician PCP - General 10/13/18 04/24/19 No Ref-Primary, Physician PCP - General 04/25/19 01/13/23 System, Provider Not In PCP - General Clinic 01/14/23 08/10/24 No Ref-Primary, Physician PCP - General 08/11/24 System, Provider Not In Clinic 08/11/24 No Ref-Primary, Physician 01/14/23 No Ref-Primary, Physician 04/25/19 Taisha Balderrama APRN RADIATION ONCOLOGY MANAGER [facility] [address] [place] [id number] Assigned Behavioral Health Provider 01/24/24 documented as of this encounter
--- OUTSIDE RECORDS SUMMARY | 2024-10-17 21:27 | XMS_ITS | Clinical Summary ---
Author Organization [place] Address [address] [facility] [place] [address] Care Team Providers Care Real Estate Job Titles Name Role Phone No Ref-Primary, Physician Primary Care Provider System, Provider Not In Unavailable Unavaila ble No Ref-Primary, Physician Unavailable [phone] No Ref-Primary, Physician Unavailable [phone] Taisha Balderrama APRN ICU STAFF NURSE Unavailable [phone] Allergies Active Allergy Reactions Criticality Noted Date Comments Trazodone 08/31/2016 Nose clogged Medications * This document contains information received from the source organization and may not represent a complete record from that organization. naloxone (NARCAN) 4 MG/0.1ML nasal sprayIndication s:Opioid use disorder, severe, dependence (H) [place] 1 spray (4 mg) into one nostril alternating nostrils as needed for opioid reversal every 2-3 minutes until assistance arrives 0.2 mL 11 4 Active amphetamine-dex troamphetamine (ADDERALL XR) 30 MG 24 hr capsuleIndicati ons:Methampheta mine use disorder, severe (H) Take 1 capsule (30 mg) by mouth daily. 15 capsule 4 Active Buprenorphine HCl-Naloxone HCl (SUBOXONE) 12-3 MG FILM per filmIndications :Opioid use disorder, severe, dependence (H) Place 1 Film under the tongue 2 times daily. 30 Film 4 Active buprenorphine HCl-naloxone HCl (SUBOXONE) 8-2 MG per filmIndications :Opioid use disorder, severe, dependence (H) Place 1 Film under the tongue daily. Take in addition to 12-3mg film twice daily. 8 Film 4 Active Buprenorphine HCl-Naloxone HCl (ZUBSOLV) 11.4-2.9 MG SUBLIndications :Opioid use disorder, severe, dependence (H) Place 1 tablet under the tongue 2 times daily. 60 tablet 4 Active Buprenorphine HCl-Naloxone HCl (SUBOXONE) 12-3 MG FILM per filmIndications :Opioid use disorder, severe, dependence (H) Place 1 Film under the tongue 2 times daily. 14 Film 5 Active Buprenorphine HCl-Naloxone HCl (ZUBSOLV) 11.4-2.9 MG SUBLIndications :Opioid use disorder, severe, dependence (H) Place 1 tablet under the tongue 2 times daily. 14 tablet 5 Active Active Problems Problem Noted Date Diagnosed Date Left leg cellulitis 03/22/2023 Malingering 11/24/2019 Overview (11/24/2019): Repeated presentations to ED after telling police he swallowed bags of meth or heroin to avoid arrest, then leaves AMA. IVDU (intravenous drug user) 11/24/2019 Adult antisocial behavior 11/24/2019 Cannabis abuse 11/24/2019 Chronic hepatitis C without hepatic coma 020 Purposeful non-suicidal drug ingestion, initial encounter 11/24/2019 Substance abuse withdrawal with complication Purposeful non-suicidal drug ingestion 9 Methamphetamine abuse 10/11/2016 Opioid use disorder, severe, dependence 08/12/19 17 Mood disorder 05/02/2013 Intoxication by drug 03/28/2013 Other conduct disorders 04/27/2012 Overview (05/05/2015): Diagnosis updated by automated process. Provider to review and confirm. Counseling for parent-child problem 04/27/2012 Overview (04/04/2015): Problem list name updated by automated process. Provider to review Resolved Problems Problem Noted Date Diagnosed Date Resolved Date Heroin abuse 11/24/2019 05/01/2024 Drug abuse 04/14/2019 05/01/2024 Polysubstance abuse 05/02/2013 05/01/20 24 Cannabis dependence 04/27/2012 05/01/20 24 Overview (04/04/2015): Problem list name updated by automated process. Provider to review Encounters * This document contains information received from the source organization and may not represent a complete record from that organization. Date Type Department Care Team Description 08/11/2024 4:41 AM RIBBON HANKING MACHINE OPERATOR - 08/11/2024 1:00 PM RIBBON HANKING MACHINE OPERATOR Emergency [facility] Emergency Dept [address] [place] [address] Aftab Singre MD Salay, Nicholas J, MD Disorganized behavior; Drug abuse - concern for Discharge Disposition: Home or Self Care 07/24/2024 Travel from Last 3 Months Immunizations Name Administration Dates Next Due Mantoux Tuberculin Skin Test 05/03/2012 Family History Medical History Relation Comments Substance Abuse Father Anxiety Disorder Mother Depression Mother Relation Status Comments Father Alive Maternal Grandfather Maternal Grandmother Alive Mother Alive Paternal Grandfather Paternal Grandmother Sister Alive Social History Tobacco Use Types Packs/Day Years Used Date Smoking Tobacco: Former Cigarettes Smokeless Tobacco: Never Tobacco Cessation:Counseling Given: Not Answered Alcohol Use Standard Drinks/Week Comments Not Currently 0 (1 standard drink = 0.6 oz pur e alcohol) PHQ-2 Answer Date Recorded PHQ-2 Score 0 07/24/2024 Adolescent Education Answer Date Record ed Getting School Help Needed Not on file 03/26 Sex and Gender Information Value Date Recorded Sex Assigned at Not on file Legal Sex Male 5:10 AM RIBBON HANKING MACHINE OPERATOR Gender Identity Not on file Sexual Orientation Not on file Last Filed Vital Signs Vital Sign Reading Time Taken Comments Blood Pressure 135/86 08/11/2024 10:56 AM RIBBON HANKING MACHINE OPERATOR Pulse 67 08/11/2024 10:56 AM RIBBON HANKING MACHINE OPERATOR Temperature 36.4 C (97.5 F) 08/11/2024 10:56 AM RIBBON HANKING MACHINE OPERATOR Respiratory Rate 14 08/11/2024 10:56 AM RIBBON HANKING MACHINE OPERATOR Oxygen Saturation 100% 08/11/2024 10:56 AM RIBBON HANKING MACHINE OPERATOR Inhaled Oxygen Concentration - - Weight 77.1 kg (170 lb) 08/11/2024 4:51 AM RIBBON HANKING MACHINE OPERATOR Height 188 cm (6' 2) 04/09/2023 4:17 AM CDT Body Mass Index 21.83 04/09/2023 4:17 AM CDT Plan of Treatment Health Maintenance Due Date Last Done Comments ADVANCE CARE PLANNING 1995 ANNUAL REVIEW OF HM ORDERS 1995 CONTROLLED SUBSTANCE AGREEMENT FOR CHRONIC PAIN MANAGEMENT 1995 YEARLY PREVENTIVE VISIT 1998 CEZAR ASSESSMENT 08/12/2017 08/12/2016 DTAP/TDAP/TD IMMUNIZATION (7 - Td or Tdap) 05/23/2018 05/23/2008, 04/04/2003, 12/10/1998, Additional history exists Pneumococcal Vaccine: Pediatrics (0 to 5 Years) and At-Risk Patients (6 to 49 Years) (2 of 2 - PCV) 04/28/2021 04/28/2020 COVID-19 Vaccine (5 - season) 2024 05/12/2022, 07/16/2021, 12/31/2020, Additional history exists INFLUENZA VACCINE (#1) 2024 04/28/2020 PHQ-9 07/24/2025 07/24/2024, 10/2 02/2024, 03/30/2024, Additional history exists URINE DRUG SCREEN 07/24/2025 07/24/2024, , 02/17/2024, Additional history exists ZOSTER IMMUNIZATION (1 of 2) 2045 HEPATITIS B IMMUNIZATION Completed 005, 09/14/2004, 02/26/2004, Additional history exists MENINGITIS IMMUNIZATION Aged Out 05/23/2008 No l onger eligible based on patient's age to complete this topic HEPATITIS A IMMUNIZATION Completed 04/28/2020, 02/03 HEPATITIS C SCREENING Completed 11/13/2020 , 11/13/2020, 07/31/2020, Additional history exists HIV SCREENING Completed 11/13/2020, 09/0 03/2020, 06/21/2019, Additional history exists PHQ-2 (once per calendar year) Completed 07/24/2024, 07/24/2024, 04/30/2024, Additional history exists HPV IMMUNIZATION Aged Out No longer e ligible based on patient's age to complete this topic Procedures Procedure Name Priority Date/Time Associated Diagnosis Comments CBC WITH PLATELETS & DIFFERENTIAL STAT 08/11/2024 5:20 AM RIBBON HANKING MACHINE OPERATOR CBC WITH PLATELETS AND DIFFERENTIAL STAT 08/11/2024 5:20 AM RIBBON HANKING MACHINE OPERATOR ETHYL ALCOHOL LEVEL STAT 08/11/2024 5 :20 AM RIBBON HANKING MACHINE OPERATOR SALICYLATE LEVEL STAT 08/11/2024 5:20 AM RIBBON HANKING MACHINE OPERATOR ACETAMINOPHEN LEVEL STAT 08/11/2024 5 :20 AM RIBBON HANKING MACHINE OPERATOR COMPREHENSIVE METABOLIC PANEL STAT 08/11/2024 5:20 AM RIBBON HANKING MACHINE OPERATOR DRUG CONFIRMATION PANEL URINE WITH CREAT Routine 07/24/2024 1:10 PM RIBBON HANKING MACHINE OPERATOR Encounter for monitoring opioid maintenance therapy URINE CREATININE FOR DRUG SCREEN PANEL Routine 07/24/2024 1:10 PM RIBBON HANKING MACHINE OPERATOR Encounter for monitoring opioid maintenance therapy URINE DRUG CONFIRMATION PANEL Routine 07/24/2024 1:10 PM RIBBON HANKING MACHINE OPERATOR Encounter for monitoring opioid maintenance therapy DRUGS OF ABUSE SCREEN URINE (POC CUPS) POCT Routine 07/24/2024 12:55 PM RIBBON HANKING MACHINE OPERATOR Encounter for monitoring opioid maintenance therapy HIV ANTIGEN ANTIBODY COMBO Routine 06/21/2019 1:37 PM RIBBON HANKING MACHINE OPERATOR Opioid type dependence, continuous (H) HEPATITIS C ANTIBODY Routine 08/26/2016 2:17 PM RIBBON HANKING MACHINE OPERATOR Drug abuse, IV (H) Unprotected sex from Last 3 Months or Most Recently Relevant to Health Maintenance Results * CBC with platelets and differential (08/11/2024 5:20 AM RIBBON HANKING MACHINE OPERATOR) WBC Count 8.5 4.0 - 11.0 10e3/uL 08/11/2024 5:33 AM RIBBON HANKING MACHINE OPERATOR [facility] RBC Count 4.91 4.40 - 5.90 10e6/uL 08/11/2024 5:33 AM RIBBON HANKING MACHINE OPERATOR [facility] Hemoglobin 14.1 13.3 - 17.7 g/dL 08/11/2024 5:33 AM RIBBON HANKING MACHINE OPERATOR [facility] Hematocrit 40.3 40.0 - 53.0 % 08/11/2024 5:33 AM RIBBON HANKING MACHINE OPERATOR [facility] MCV 82 78 - 100 fL 08/11/2024 5:33 AM RIBBON HANKING MACHINE OPERATOR [facility] MCH 28.7 26.5 - 33.0 pg 08/11/2024 5:33 AM RIBBON HANKING MACHINE OPERATOR [facility] MCHC 35.0 31.5 - 36.5 g/dL 08/11/2024 5:33 AM RIBBON HANKING MACHINE OPERATOR [facility] RDW 12.7 10.0 - 15.0 % 08/11/2024 5:33 AM RIBBON HANKING MACHINE OPERATOR [facility] Platelet Count 222 150 - 450 10e3/uL 08/11/2024 5:33 AM RIBBON HANKING MACHINE OPERATOR [facility] % Neutrophils 62 % 08/11/2024 5:33 AM RIBBON HANKING MACHINE OPERATOR [facility] % Lymphocytes 20 % 08/11/2024 5:33 AM RIBBON HANKING MACHINE OPERATOR [facility] % Monocytes 12 % 08/11/2024 5:33 AM RIBBON HANKING MACHINE OPERATOR [facility] % Eosinophils 5 % 08/11/2024 5:33 AM RIBBON HANKING MACHINE OPERATOR [facility] % Basophils 1 % 08/11/2024 5:33 AM RIBBON HANKING MACHINE OPERATOR [facility] % Immature Granulocytes 0 % 08/11/2024 5:33 AM RIBBON HANKING MACHINE OPERATOR [facility] NRBCs per 100 WBC 0 <1 /100 025 5:33 AM RIBBON HANKING MACHINE OPERATOR [facility] Absolute Neutrophils 5.2 1.6 - 8.3 10e3/uL 08/11/2024 5:33 AM RIBBON HANKING MACHINE OPERATOR [facility] Absolute Lymphocytes 1.7 0.8 - 5.3 10e3/uL 08/11/2024 5:33 AM [facility] Absolute Monocytes 1.0 0.0 - 1.3 10e3/uL 08/11/2024 5:33 AM RIBBON HANKING MACHINE OPERATOR [facility] Absolute Eosinophils 0.4 0.0 - 0.7 10e3/uL 08/11/2024 5:33 AM [facility] Absolute Basophils 0.1 0.0 - 0.2 10e3/uL 08/11/2024 5:33 AM [facility] Absolute Immature Granulocytes 0.0 <=0.4 10e3/uL 08/11/2024 5:33 AM [facility] Absolute NRBCs 0.0 10e3/uL 08/11/2024 5:33 AM [facility] Blood BLOOD SPECIMEN / Unknown Venipuncture / Unknown 08/11/2024 5:20 AM RIBBON HANKING MACHINE OPERATOR 08/11/2024 5:28 AM RIBBON HANKING MACHINE OPERATOR Aftab Singer MD LAB - BLOOD ORDERABLES Final Res ult [facility] [address] Lab (1st floor, no room number) [place] [phone] * Salicylate level (08/11/2024 5:20 AM RIBBON HANKING MACHINE OPERATOR) Salicylate <0.3 mg/dL 08/11/2024 6:03 AM [facility] Comment: Salicylate Reference Range Therapeutic: 3-10 mg/dL Anti inflammatory: 15-30 mg/dL Blood BLOOD SPECIMEN / Unknown Venipuncture / Unknown 08/11/2024 5:20 AM RIBBON HANKING MACHINE OPERATOR 08/11/2024 5:27 AM RIBBON HANKING MACHINE OPERATOR Aftab Singer MD LAB - BLOOD ORDERABLES Final Res ult Performing Organization Address [facility] [address]/[facility] Co de Phone Number [facility] [address] Lab (1st floor, no room number) [place] [phone] [place] [address] * (ABNORMAL) Comprehensive metabolic panel (08/11/2024 5:20 AM RIBBON HANKING MACHINE OPERATOR) Pathologist [facility] Sodium 138 135 - 145 mmol/L 08/11/2024 5:52 AM [facility] Potassium 3.8 3.4 - 5.3 mmol/L 08/11/2024 5:52 AM [facility] Carbon Dioxide (CO2) 25 22 - 29 mmol/L 08/11/2024 5:52 AM [facility] Anion Gap 14 7 - 15 mmol/L 08/11/2024 5:52 AM [facility] Urea Nitrogen 21.2(H) 6.0 - 20.0 mg/dL 08/11/2024 5:52 AM [facility] Creatinine 0.94 0.67 - 1.17 mg/dL 08/11/2024 5:52 AM [facility] GFR Estimate >90 >60 mL/min/1.7 3m2 08/11/2024 5:52 AM [facility] Comment:eGFR calculated usin 2020 CKD-EPI equation. Calcium 9.5 8.8 - 10.4 mg/dL 08/11/2024 5:52 AM RIBBON HANKING MACHINE OPERATOR LABORATORY Chloride 99 98 - 107 mmol/L 08/11/2024 5:52 AM RIBBON HANKING MACHINE OPERATOR LABORATORY Glucose 93 70 - 99 mg/dL 08/11/2024 5:52 AM RIBBON HANKING MACHINE OPERATOR LABORATORY Alkaline Phosphatase 51 40 - 150 U/L 08/11/2024 5:52 AM RIBBON HANKING MACHINE OPERATOR LABORATORY AST 42 0 - 45 U/L 08/11/2024 5:52 AM RIBBON HANKING MACHINE OPERATOR LABORATORY ALT 25 0 - 70 U/L 08/11/2024 5:52 AM RIBBON HANKING MACHINE OPERATOR LABORATORY Protein Total 7.6 6.4 - 8.3 g/dL 08/11/2024 5:52 AM RIBBON HANKING MACHINE OPERATOR LABORATORY Albumin 5.0 3.5 - 5.2 g/dL 08/11/2024 5:52 AM RIBBON HANKING MACHINE OPERATOR LABORATORY Bilirubin Total 1.0 <=1.2 mg/dL 08/11/2024 5:52 AM RIBBON HANKING MACHINE OPERATOR LABORATORY Blood BLOOD SPECIMEN / Unknown Venipuncture / Unknown 08/11/2024 5:20 AM RIBBON HANKING MACHINE OPERATOR 08/11/2024 5:28 AM RIBBON HANKING MACHINE OPERATOR Aftab Singer MD LAB - BLOOD ORDERABLES Final Res ult [facility] [address] Lab (1st floor, no room number) [place] [address] * Alcohol ethyl (08/11/2024 5:20 AM RIBBON HANKING MACHINE OPERATOR) Alcohol ethyl <0.01 <=0.01 g/dL 08/11/2024 5:52 AM RIBBON HANKING MACHINE OPERATOR LABORATORY Blood BLOOD SPECIMEN / Unknown Venipuncture / Unknown 08/11/2024 5:20 AM RIBBON HANKING MACHINE OPERATOR 08/11/2024 5:28 AM RIBBON HANKING MACHINE OPERATOR Aftab Singer MD LAB - BLOOD ORDERABLES Final Res ult [facility] [address] [employer] [address] Lab (1st floor, no room number) [place] [address], [facility] * (ABNORMAL) Acetaminophen level (08/11/2024 5:20 AM RIBBON HANKING MACHINE OPERATOR) Acetaminophen <5.0(L) 10.0 - 30.0 ug/mL 08/11/2024 6:03 AM RIBBON HANKING MACHINE OPERATOR LABORATORY Blood BLOOD SPECIMEN / Unknown Venipuncture / Unknown 08/11/2024 5:20 AM RIBBON HANKING MACHINE OPERATOR 08/11/2024 5:27 AM RIBBON HANKING MACHINE OPERATOR Aftab Singer MD LAB - BLOOD ORDERABLES Final Res ult [facility] [address] [facility] Lab (1st floor, no room number) [place] [address], [facility] * Urine Creatinine for Drug Screen Panel (07/24/2024 1:10 PM RIBBON HANKING MACHINE OPERATOR) Creatinine Urine for Drug Screen 240 mg/dL 07/24/2024 4:05 PM RIBBON HANKING MACHINE OPERATOR [facility] Comment:The reference range has not been established for creatinine in random urines. The results should be integrated into the clinical context for interpretation. Urine MID-STREAM URINE SPECIMEN / Unknown Non-blood Collection / Unknown 07/24/2024 1:10 PM RIBBON HANKING MACHINE OPERATOR 07/24/2024 3:37 PM RIBBON HANKING MACHINE OPERATOR Ana Rucker CNP LAB - URINE ORDERABLES Fin al Result [facility] [address] [facility], [address] [place] [address], [facility] * (ABNORMAL) Urine Drug Confirmation Panel (07/24/2024 1:10 PM RIBBON HANKING MACHINE OPERATOR) Amphetamine ng/mL >12,000(H ) <50 ng/mL 07/26/2024 2:32 PM RIBBON HANKING MACHINE OPERATOR [facility] Amphetamine 07/26/2024 2:32 PM RIBBON HANKING MACHINE OPERATOR [facility] Comment:Unable to calculate: Result value above analytical measurement range Buprenorphine ng/mL 161(H) <5 ng/mL 07/26 2:32 PM RIBBON HANKING MACHINE OPERATOR [facility] Buprenorphine 67 Absent ng/mg {creat} 07/26/2024 2:32 PM RIBBON HANKING MACHINE OPERATOR [facility] Comment:Buprenorphine is a s cheduled prescription medication. Norbuprenorphine ng/mL 450(H) <5 ng/mL 07/26/2024 2:32 PM RIBBON HANKING MACHINE OPERATOR [facility] Norbuprenorphine 188 Absent ng/mg {creat} 07/26/2024 2:32 PM RIBBON HANKING MACHINE OPERATOR [facility] Comment:Buprenorphine is a s cheduled prescription medication. Norbuprenorphine is an expected metabolite of buprenorphine. Naloxone ng/mL 1,246(H) <5 ng/mL 07/26/2024 2:32 PM RIBBON HANKING MACHINE OPERATOR [facility] Naloxone 519 Absent ng/mg {creat} 07/26/2024 2:32 PM RIBBON HANKING MACHINE OPERATOR [facility] Comment:Sources of naloxone are scheduled prescription medications. Urine MID-STREAM URINE SPECIMEN / Unknown Non-blood Collection / Unknown 07/24/2024 1:10 PM RIBBON HANKING MACHINE OPERATOR 07/24/2024 3:37 PM RIBBON HANKING MACHINE OPERATOR Narrative [facility] - 07/26/2024 2:32 PM RIBBON HANKING MACHINE OPERATOR This test was developed and its performance characteristics determined by the [facility], Special Chemistry Laboratory. It has not been cleared or approved by the FDA. The laboratory is regulated under CLIA as qualified to perform high-complexity testing. This test is used for clinical purposes. It should not be regarded as investigational or for research. Drugs with concentrations less than the cutoff will not be reported. The drugs with applicable detection cutoff limits that are included within the Drug Confirmation Panel are: The following drugs are detected with a cutoff of 3 ng/ml: FENTANYL The following drugs are detected with a cutoff of 5 ng/mL: 6-ACETYLMORPHINE, BUPRENORPHINE, NALOXONE, NORBUPRENORPHINE, NORFENTANYL The following drugs are detected with a cutoff of 10 ng/mL: SUFENTANIL The following drugs are detected with a cutoff of 20 ng/mL: PCP (PHENCYCLIDINE) The following drugs are detected with a cutoff of 50 ng/mL: 7-AMINOCLONAZEPAM, 7-AMINOFLUNITRAZEPAM, ALPRAZOLAM, AMPHETAMINE, O-GF-TSMQPSXHCR, P-RT-TDNIBERQA, V-WM-SANHCHPPE, BENZOYLECGONINE (Cocaine Metabolite), CLONAZEPAM, COCAETHYLENE (Cocaine Metabolite), CODEINE, DIAZEPAM, DIHYDROCODEINE, EDDP (Methadone Metabolite), HYDROCODONE, HYDROMORPHONE, LORAZEPAM, MDA (3,4-Methylenedioxyamphetamine), MDEA (3,8-Yicnribtcsbhmc-T-ethylcathinone), MDMA (Methylenedioxyamphetamine,Ecstasy), MEPERIDINE, METHADONE, METHAMPHETAMINE, METHYLPHENIDATE (Ritalin), MORPHINE, NALTREXONE, X-VZIVOIC-MASYXWQYSQ, NORCODEINE, NORDIAZEPAM, NORMEPERIDINE, F-DFB-NHPYSHAQ, OXAZEPAM, OXYCODONE, OXYMORPHONE, PROPOXYPHENE, RITALINIC ACID, TAPENTADOL, TEMAZEPAM, THEBAINE, TRAMADOL The following drugs are detected with a cutoff of 100 ng/mL: GABAPENTIN, KETAMINE The following drugs are detected with a cutoff of 200 ng/mL: PREGABALIN, XYLAZINE Providers with questions surrounding testing results should contact the Clinical Chemistry service line. us Ana Rucker ICU STAFF NURSE LAB - URINE ORDERABLES Fin al Result [facility] [address] [facility], [address] [place] [phone] * (ABNORMAL) Drugs of Abuse Screen Urine (POC CUPS) POCT (07/24/2024 12:55 PM RIBBON HANKING MACHINE OPERATOR) [facility] POCT Kit Lot Number [id number] [facility] P[facility] POCT Kit Expiration Date 02/05/2026 [facility] POC Temperature Urine POCT 90 F 90 F, 92 F, 94 F, 96 F, 98 F, 100 F [facility] POC Specific [place] POCT 1.025 1.005, 1.015, 1.025 [facility] POC pH Qual Urine POCT 5 pH 4 pH, 5 pH, 7 pH, 9 pH [facility] POC Creatinine Qual Urine POCT 50 mg/dL 20 mg/dL, 50 mg/dL, 100 mg/dL, 200 mg/dL [facility] POC Internal QC Qual Urine POCT Valid Valid [facility] POC Amphetamine Qual Urine POCT Screen Positive(A) Negative [facility] POC Barbiturate Qual Urine POCT Negative Negative [facility] POC Buprenorphine Qual Urine POCT Screen Positive(A) Negative [facility] POC Benzodiazepine Qual Urine POCT Negative Negative [facility] POC Cocaine Qual Urine POCT Negative Negative [facility] POC Methamphetamine Qual Urine POCT Negative Negative [facility] POC MDMA Qual Urine POCT Negative Negative [facility] POC Methadone Qual Urine POCT Negative Negative [facility] POC Opiate Qual Urine POCT Negative Negative [facility] POC Oxycodone Qual Urine POCT Negative Negative [facility] POC Phencyclidine Qual Urine POCT Negative Negative [facility] POC THC Qual Urine POCT Screen Positive(A) Negative [facility] POC Urine 07/24/2024 12:5 5 PM RIBBON HANKING MACHINE OPERATOR us Ana Rucker CNP LAB - ENTER/EDIT POCT Taylor l Result [facility] POC [facility] [address] [place] [address], [address] [phone] * HIV Antigen Antibody Combo (06/21/2019 1:37 PM RIBBON HANKING MACHINE OPERATOR) HIV Antigen Antibody Combo Nonreactive NR^Nonrea ctive 06/22/2019 11:12 AM RIBBON HANKING MACHINE OPERATOR [facility] Comment:HIV-1 p24 Ag & HIV-1 /HIV-2 Ab Not Detected 06/21/2019 1:37 PM RIBBON HANKING MACHINE OPERATOR 06/21/2019 1:44 PM RIBBON HANKING MACHINE OPERATOR Ethan Layne MD LAB - BLOOD ORDERABLES Final Re sult [facility] [address] [place] [address] * Hepatitis C antibody (08/26/2016 2:17 PM RIBBON HANKING MACHINE OPERATOR) Hepatitis C Antibody Nonreactive Assay performance characteristics have not been established for newborns, infants, and children NR [facility] Blood specimen (specimen) 08/26/2016 2:17 PM RIBBON HANKING MACHINE OPERATOR 08/26/2016 2:18 PM RIBBON HANKING MACHINE OPERATOR us Tayo Beebe PA-C LAB - BLOOD ORDERABLE S Final Result [address] [phone] from Last 3 Months or Most Recently Relevant to Health Maintenance Insurance [facility] Advance Directives For more information, please contact: [phone] * Full Code (Latest Code Status on File) Date Activated Date Inactivated Comments 03/22/2023 9:22 PM 03/23/2023 10:37 AM All basic a nd advanced life-sustaining interventions are performed as appropriate Question Answer Comments Code status determined by: Discussion with patie nt/ legal decision maker * Full Code Date Activated Date Inactivated Comments 11/24/2019 5:30 AM 11/24/2019 5:35 PM Question Answer Comments Code status determined by: Discussion with patie nt/legal decision maker * Full Code Date Activated Date Inactivated Comments 06/21/2019 7:11 PM 06/22/2019 4:47 PM Question Answer Comments Code status determined by: Discussion with patie nt/legal decision maker * Full Code Date Activated Date Inactivated Comments 04/14/2019 11:22 AM 04/15/2019 6:51 AM Question Answer Comments Code status determined by: Discussion with patie nt/legal decision maker * Full Code Date Activated Date Inactivated Comments 03/28/2013 6:12 PM 10/13/2018 7:07 AM Care Teams Real Estate Job Titles Relationship Specialty Start Date End Date No Ref-Primary, Physician PCP - General 08/11/24 System, Provider Not In Clinic 08/11/24 No Ref-Primary, Physician 01/14/23 No Ref-Primary, Physician 04/25/19 Taisha Balderrama APRN ICU STAFF NURSE PAIN [address] [address] Assigned Behavioral Health Provider 01/24/24
--- OUTSIDE RECORDS SUMMARY | 2024-10-17 21:27 | XMS_ITS | Encounter Summary ---
Author Organization [facility] Address [address] [place] [address] Care Team Providers Care Rough Rice Grader Name Role Phone System, Provider Not In Primary Care Provider Un available No Ref-Primary, Physician Primary Care Provider System, Provider Not In Unavailable Unavaila ble No Ref-Primary, Physician Unavailable [phone] No Ref-Primary, Physician Unavailable [phone] Taisha Balderrama APRN HR ANALYST Unavailable [phone] Reason for Visit * Reason Onset Date Comments Eval/Assessment 06/29/2023 Encounter Details Date Type Department Care Team ([facility] Contact Info) Description 06/29/2023 Telephone [facility] Behavioral Health Intake [address] [place] [phone] Generic, Behavioral Intake, Eval/Assessment Social History Tobacco Use Types Packs/Day Years Used Date Smoking Tobacco: Every Day Cigarettes Smokeless Tobacco: Never Alcohol Use Standard Drinks/Week Comments Not Currently 0 (1 standard drink = 0.6 oz pur e alcohol) Adolescent Education Answer Date Record ed Getting School Help Needed Not on file 03/26 Sex and Gender Information Value Date Recorded Sex Assigned at Not on file Legal Sex Male 5:10 AM PERSONAL TRAINER Gender Identity Not on file Sexual Orientation Not on file documented as of this encounter Miscellaneous Notes * Telephone Encounter - Norris Castrejon LADC - 07/06/2023 5:21 PM PERSONAL TRAINER This patient was a no call/no show to his 5:00 pm substance use disorder assessment appointment today on 07/06/2023. The patient had not arrived to [facility] for the appointment as of 5:20 pm. The patient should be directed to call the [facility] Intake department at to re-schedule the substance use disorder assessment as needed. ONAL TRAINER * Telephone Encounter - Joslyn Carter - 07/05/2023 11:23 AM CST 07/05/2023 Attempted number 2x, phone did not ring. Unable to leave voicemail regarding appt. Joslyn Carter [facility] - Patient Navigator [email or web address] Direct phone: [phone] ONAL TRAINER * Telephone Encounter - Diamante Piedra - 06/30/2023 11:24 AM CST 06/30/2023 Attempted home number twice, no ring, unable to leave vm regarding appointment date and time. Service[employer]es[employer] message sent. Diamante Piedra, Patient Navigator [phone] ONAL TRAINER * Telephone Encounter - Hiren Hall - 06/29/2023 1:26 PM CST Pt is a(n) adult (18+ out of HS) Seeking as eval for Adult TOMMY Assessment (no programming).. Appointment scheduled by: Patient. (self-pay - complete Cost Estimate) Caller name: same Caller phone #: same Legal Guardianship Reviewed? No Honoring Choices Notified? No Brief reason for appt: needs for P.O Back Hoe Operator needed? NO Contact information verified/updated: no call ended before it could be updated. Hiren Hall ONAL TRAINER ONAL TRAINER documented in this encounter Plan of Treatment Not on file documented as of this encounter Visit Diagnoses Not on filedocumented in this encounter Additional Health Concerns Assessment Noted Time PHQ-9 Depression Total Score: 5 08/13/19 17 7:09 AM PERSONAL TRAINER documented as of this encounter Care Teams Rough Rice Grader Relationship Specialty Start Date End Date System, Provider Not In PCP - General Clinic 01/14/23 08/10/24 No Ref-Primary, Physician PCP - General 08/11/24 System, Provider Not In Clinic 08/11/24 No Ref-Primary, Physician 01/14/23 No Ref-Primary, Physician 04/25/19 Taisha Balderrama APRN HR ANALYST [facility] [address] [place] [phone] Assigned Behavioral Health Provider 01/24/24 documented as of this encounter
[2024-10-18] VITALS (30 sets, daily range): BP systolic 110–148; BP diastolic 75–110; PULSE 56–84; RESP 10–22; O2SAT 96–100
--- NOTE | 2024-10-18 00:28 | ED.NURSE ---
Poison Control signed off on patient.
--- NOTE | 2024-10-18 01:52 | PC.NURSE ---
pt sleeping, arouses to voice, vss, lady called him and transferred to handset phone so pt could speak with her, sleeping at this time
== END 2024-10-18 06:46 | disposition home or self-care (01) ==
PROVIDERS: Emergency Provider Emergency Medicine Emergency Medical Services
DX: T40.2X2A Poisoning by other opioids, intentional self-harm, initial encounter (principal)
CPT/HCPCS: 74018; 93005; 99284; J7030